=== PATIENT | female | born 1940 | race Caucasian/White ===

== ENCOUNTER → 2016-12-01 | Outpatient (CLI) | payer OTHER, BC | LOC: MMPC 11:11 | PROVIDERS: ATTEND Internal Medicine | DX: E78.5 Hyperlipidemia, unspecified (principal); G47.00 Insomnia, unspecified; M17.12 Unilateral primary osteoarthritis, left knee; I25.10 Atherosclerotic heart disease of native coronary artery without angina pectoris; M81.0 Age-related osteoporosis without current pathological fracture; R20.2 Paresthesia of skin; Z86.711 Personal history of pulmonary embolism; Z90.81 Acquired absence of spleen; Z86.018 Personal history of other benign neoplasm | CPT/HCPCS: 99213; G0463 ==

== ENCOUNTER → 2017-02-24 | Outpatient (CLI) | payer OTHER, BC | LOC: MMPC 09:00 | PROVIDERS: ATTEND Family Medicine | DX: M54.2 Cervicalgia (principal); M79.641 Pain in right hand; M79.642 Pain in left hand | CPT/HCPCS: 99213; G0463 ==

== ENCOUNTER → 2017-04-01 | Outpatient (CLI) | payer OTHER, BC ==
[2017-04-01 08:56] LABS: BLOOD UREA NITROGEN 16 mg/dL (7-22); BUN/CREATININE RATIO 11.42 (6-20); CALCIUM 9.8 mg/dL (8.7-10.7); SERUM ALBUMIN 4.2 g/dL (3.5-4.8)
[2017-04-01 08:57] LABS: BASOPHILS # (AUTO) 0.04 10*3/UL; BASOPHILS % (AUTO) 0.5 % (0-1); EOSINOPHILS # (AUTO) 0 10*3/UL; EOSINOPHILS % (AUTO) 0 % (0-8); HEMATOCRIT 42.5 % (37.0-47.0); HEMOGLOBIN 14.4 g/dL (12.0-16.0); LYMPHOCYTES # (AUTO) 1.12 10*3/uL; MEAN CORPUSCULAR HEMOGLOBIN 30.8 PG (27-31); MEAN CORPUSCULAR HGB CONC 33.9 g/dL (33-37); MEAN PLATELET VOLUME 9.4 FL (7.4-12.2); MONOCYTES # (AUTO) 0.58 10*3/UL (0.3-0.8); NEUTROPHILS # (AUTO) 6.49 10*3/UL; NEUTROPHILS % (AUTO) 78.7 % (50-80); RED BLOOD COUNT 4.67 10^6/uL (4.20-5.40)
[2017-04-01 09:09] LABS: PLATELET MORPHOLOGY COMMENT NORMAL MORPHOLOGY (NORM); RBC MORPHOLOGY COMMENT NORMAL MORPHOLOGY (NORM); WBC MORPHOLOGY COMMENT NORMAL MORPHOLOGY (NORM)
--- NOTE | 2017-04-01 09:10 | DI ---
History: Fever of unknown origin Comparison: Chest x-ray performed on November 25, 2014 Findings: Lungs are fully expanded and clear. No infiltrate or pleural effusion Cardiac silhouette is slightly enlarged. Pulmonary vasculature normal Aortic atherosclerosis Diaphragms are flattened. Impression: Emphysematous configuration of the chest. No acute pulmonary disease. No changes compared with November 25, 2014
== END ==
LOC: RAD 08:16
PROVIDERS: ATTEND Physician Assistant Medical
DX: R50.9 Fever, unspecified (principal); J98.8 Other specified respiratory disorders; I10 Essential (primary) hypertension; E78.5 Hyperlipidemia, unspecified; R06.02 Shortness of breath
CPT/HCPCS: 36415; 71020; 80053; 85025; 85379; 87400; 99213

== ENCOUNTER 2017-04-03 10:52 | Inpatient (IN) | payer OTHER, BC ==
[2017-04-03] MEDS ORDERED: KETOROLAC 15 MG/1 ML VIAL IVP ONE (11:13)
[2017-04-03] MEDS ORDERED: Sodium Chloride 0.9% 1,000 ML PRIMARY IV ONE (11:13)
[2017-04-03] MEDS ORDERED: NORMAL SALINE 10 ML SYRINGE FLUSH IVP PRN (11:13)
[2017-04-03] MEDS ORDERED: ACETAMINOPHEN 325 MG TABLET PO ONE (11:13)
[2017-04-03 11:24] LABS: BILIRUBIN,URINE NEGATIVE (NEG); CLARITY,URINE CLEAR (CLEAR); COLOR,URINE YELLOW; GLUCOSE, URINE (UA) NEGATIVE (NEG); NITRATE,URINE NEGATIVE (NEG); OCCULT BLOOD,URINE Trace-lysed (NEG); PH,URINE 5.5 (5.0-8.5); PROTEIN,URINE 30 mg/dl (NEG); UROBILINOGEN,URINE 0.2 EU/dL (0.2)
[2017-04-03 11:32] LABS: RBC,URINE 0-2 /hpf; URINE SAMPLE TYPE CLEAN CATCH URINE
[2017-04-03 11:33] LABS: BACTERIA,URINE FEW; SQUAMOUS EPITHELIAL CELL,UR MODERATE; WBC,URINE 0-3
[2017-04-03 11:50] LABS: MAGNESIUM 2.2 mg/dL (1.6-2.4)
[2017-04-03 12:09] LABS: C-REACTIVE PROTEIN 15.7 mg/dL (0.0-0.9)
--- NOTE | 2017-04-03 12:45 | DI ---
CT ANGIOGRAM OF THE CHEST, 04/03/2017 10:15 AM : Clinical History: Elevated d-dimer tests. Cough. Fever. Previous Exam: 11/30/2014. Scans are performed from the base of the neck to the lower lung bases following IV administration of 65 mL of Isovue 300. Proprietary automated bolus tracking software was not used to verify the timing of the injection. The base of the neck and thoracic inlet are normal. There are no abnormal axillary, supraclavicular, mediastinal, or hilar nodes. The heart is normal. Small punctate calcifications are present in the pr oximal third of the LAD. There is a small pericardial effusion and this is actually smaller than on t he previous study. The pulmonary arteries are normal. There is no pulmonary arterial hypertension. Th ere is no evidence of pulmonary embolism or pulmonary infarction. The lungs are clear and there are n o pulmonary nodules or masses. Both adrenal glands, the spleen, and the visualized portions of the li tierney and pancreas are normal. READIN. Normal CTA of the chest. There are no pulmonary emboli or pulmonary infarcts. No pneumonia is not ed. 2. Small faint calcifications are noted in the proximal third of the LAD indicating coronary artery disease. There is also a small pericardial effusion anteriorly] compared to the previous exam, the si ze of the pericardial effusion is actually smaller.
[2017-04-03] MEDS ORDERED: cefTRIAXone Inj 2 GM in Sodium Chloride 0.9% 100 ML IV ONE (13:13)
--- NOTE | 2017-04-03 13:31 | PDOC ---
History and Physical - History of Present Illness History of Present Illness: This very nice 76-year-old female with past medical history significant for PE on anticoagulation. The patient states that she felt the having chills last Wednesday with a fever went to the urgent care they ran some blood work and a chest x-ray. She was put on Omnicef and sent home over the next few days the she thought she was getting better but then she has not had any fluids and low appetite and this morning her fever returned she says. She does have occasional cough in the ER she was evaluated CT scan PE protocol showed no PE no pneumonia and was admitted for dehydration and bronchitis and fever of unknown origin she does have elevated CRP and lactic acid. She is also little hypotensive but now has improved after 1 L of fluid denies dysuria hematuria diarrhea had some occasional nausea no abdominal pain no chest pain or shortness of breath Past Medical History Medical History: 1. Hypertension. 2. Hypercholesterolemia. 3. 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 4. 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 Surgical History: 1. Splenectomy after an accident. 2. Acoustic neuroma surgery about 5 years ago. Pertinent Family History: History of coronary artery disease in her father. Tobacco Use: Never Smoker Substance Use Type: None Medication / Allergies Home Medications: Home Medications Medication Instructions Recorded Confirmed Type Multivitamin [Multivitamins] 1 each PO DAILY 06/10/12 04/03/17 History Docusate Sodium [Stool Softener] 100 mg PO DAILY cap 10/23/15 04/03/17 History Ibuprofen/Diphenhydramine [Advil 1 tab PO PRN tab 10/23/15 04/03/17 History Pm Caplet] Estradiol Vaginal Cream 0.01% 1 applic VAGINAL 2XW #1 tube 02/24/16 04/03/17 Clinic [Estrace Vaginal Cream 0.01%] Folic Acid 1 tab PO QID #120 tab 03/02/16 04/03/17 Clinic Spironolactone 1 tab PO DAILY #90 tab 04/27/16 04/03/17 Clinic Pravastatin Sodium [Pravachol] 1 tab-cap PO DAILY #90 11/19/16 04/03/17 Clinic Zolpidem Tartrate 0.5 - 1 tab-cap PO QHS PRN #30 12/01/16 04/03/17 Clinic tab-cap Potassium Chloride [Klor-Con 10] 1 tab-cap PO QD #90 tab 01/26/17 04/03/17 [facility] Oxycodone HCl/Acetaminophen 1 each PO BID PRN #30 tab 02/24/17 04/03/17 Clinic [Percocet 5-325 Mg Tablet] Rivaroxaban [Xarelto] 1 tab-cap PO DAILY #90 tab 02/26/17 04/03/17 [facility] Cefdinir 300 mg PO Q12H #20 cap 04/01/17 04/03/17 [facility] Allergies/Adverse Reactions: Allergies Allergy/AdvReac Type Severity Reaction Status Date / Time atorvastatin calcium Allergy Intermediate HIGH Verified 04/03/17 11:06 [From Lipitor] ANXIETY pseudoephedrine HCl Allergy Intermediate TACHYCARDIA Verified 04/03/17 11:06 [From Sudafed] vancomycin AdvReac Severe ITCHING Verified 04/03/17 11:06 alendronate sodium AdvReac Intermediate muscle Verified 04/03/17 11:06 [From Fosamax] joint and pain Review of Systems - Review of Systems All Systems: Reviewed & No Additional Complaints Except as Stated - Respiratory Respiratory: REPORTS: Cough. DENIES: Sputum, Dyspnea At Rest, Dyspnea with Exertion, Hemoptysis, Wheezing - Cardiovascular Cardiovascular: DENIES: Negative System Review, Chest Pain, Edema, Syncope, Palpitations, Orthopnea, Paroxysmal Nocturnal Dyspnea, Other, See HPI - Gastrointestinal Gastrointestinal / Abdominal: REPORTS: Nausea, Poor Appetite. DENIES: Vomiting , Diarrhea, Abdominal Pain, Bloody Stool, Heartburn, Regurgitation, Bloating, Lactose Intolerance, Melena, Bright Red Blood Per Rectum - Genitourinary Genitourinary: DENIES: Negative System Review, Pain, Burning, Hematuria, Incontinence, Urgency, Hesitant Stream, Decreased Stream, Nocutria, Discharge, Sexual Dyfunction, Other, See HPI - Musculoskeletal Musculoskeletal: DENIES: Negative System Review, Back Pain, Neck Pain, Swelling , Calf Pain, Muscle Pain, Cramping, Joint Pain - Hands, Joint Pain - Elbows, Joint Pain - Shoulders, Joint Pain - Hips, Joint Pain - Knees, Joint Pain - Feet , AM Stiffness, Other, See HPI - Neurological Neurologic: REPORTS: Headache. DENIES: Numbness/Paresthesia, Tremors, Seizures , Memory Loss, Difficulty Walking, Incoordination Exam - Vitals Vital Signs: Vital Signs Temperature 102.1 F Temperature Source Oral Pulse Rate [Pulse Oximeter] 89 Respiratory Rate 19 Blood Pressure [Left Arm] 131/100 Pulse Ox 91 Oxygen Delivery Method Room Air Height 5 ft 4 in Weight 63.957 kg - General General Appearance: POSITIVE: No Acute Distress, Cooperative - Head Head Exam: POSITIVE: Normal Inspection, Normocephalic, Atraumatic - Neck Neck Exam: POSITIVE: Normal Inspection, Full ROM - Respiratory Respiratory Exam: POSITIVE: Clear to Auscultation - Bilaterally, Breathing Non Labored - Cardiovascular Cardiovascular Exam: POSITIVE: RRR, No Murmur, No Clicks, No Gallops - Extremities Extremities Exam: POSITIVE: No Clubbing Present, No Edema Present, No Cyanosis Present Results - Labs Labs - Last 24 Hours: Laboratory Results 04/03/17 04/03/17 Range/Units 11:13 11:30 Lactic Acid 2.7 H (0.70-2.10) MMOL/L Magnesium 2.2 (1.6-2.4) mg/dL Total Creatine Kinase 114 (30-136) IU/L C-Reactive Protein 15.7 H (0.0-0.9) mg/dL Ur Collection Type Clean catch urine Urine Color Yellow Urine Clarity Clear (CLEAR) Urine pH 5.5 (5.0-8.5) Ur Specific [place] 1.015 (1.005-1.030) Urine Protein 30 (NEG) mg/dl Urine Glucose (UA) Negative (NEG) mg/dL Urine Ketones Negative (NEG) Urine Occult Blood Trace-lysed H (NEG) Urine Nitrate Negative (NEG) Urine Bilirubin Negative (NEG) Urine Urobilinogen 0.2 (0.2) EU/dL Ur Leukocyte Esterase Negative (NEG) Urine RBC 0-2 (NONE) /hpf Urine WBC 0-3 (NONE) Ur Squamous Epith Cells Moderate (NONE) Ur Renal Epithelial Cell None (NONE) Urine Crystals None Urine Bacteria Few (NONE) Urine Casts None (NONE) Urine Mucus Moderate (NONE) Urine Trichomonas None (NONE) Urine Yeast None (NONE) Ur Culture Indicated? Culture not set Assessment and Plan - Patient Problems (1) DVT prophylaxis Current Visit: No Status: Acute Comment: Continue xarelto (2) Bronchitis Current Visit: Yes Status: Acute (3) Dehydration Current Visit: Yes Status: Acute Comment: Continue normal saline at 125 an hour (4) Fever and chills Current Visit: Yes Status: Acute - Assessment / Plan Additional Assessment/Plan Details: This very nice 76-year-old female could be early pneumonia has treated with the Omnicef not showing up on CT I don't find any source of infection at present time she has no abdominal pain nausea no diarrhea I will add a troponin could also be viral blood pressure is improved I believe from her not drinking any fluids over the last few days we will continue Rocephin and Zithromax which she got in the ER already blood cultures were drawn and continue IV fluids. She does have a history of acoustic neuroma in the past I will order CT scan of the head as well no contrast
--- NOTE | 2017-04-03 13:34 | PDOC ---
General Adult HPI - General Chief Complaint: General Medical Stated Complaint: FEVER / CHILLS Date Seen by Provider: 04/03/17 Time Seen by Provider: 10:55 Source: POSITIVE: Patient Exam Limitations: POSITIVE: No limitations Nurse's Notes Reviewed & Considered: Yes - History of Present Illness Initial Comment: The patient is a 76-year-old female who is sent to the emergency department by urgent care with complaints of fever, cough and general malaise. She states that she started feeling ill on Wednesday of last week. She was evaluated at the walk-in clinic on . She had a chest x-ray that was read by the radiologist as normal however there was some concern about possible early pneumonia and she was placed on Omnicef. She has been taking this antibiotic for the past couple of days. She continues however to run a fever and had a temperature of 102 on arrival here. She also has associated chills and general malaise. She states that she has had no appetite. She does have some cough. She denies sore throat or nasal congestion. She has had a general headache as well the past 24 hours. She denies any abdominal pain, urinary complaints or rash. She does have a history of blood clots as well and currently takes Xarelto. She was seen at the walk-in clinic again this morning. Blood work was done and revealed an elevated d-dimer. Her white blood cell count was normal. She was sent here to the emergency room for further workup and possible hospital admission. Have you received a tetanus shot in the past 10 years?: Yes - Patient Home Medications Home Medications: Home Medications Multivitamin [Multivitamins] 1 each PO DAILY 06/10/12 Docusate Sodium [Stool Softener] 100 mg PO DAILY cap 10/23/15 Ibuprofen/Diphenhydramine [Advil Pm Caplet] 1 tab PO PRN tab 10/23/15 Estradiol Vaginal Cream 0.01% [Estrace Vaginal Cream 0.01%] 1 applic VAGINAL 2XW #1 tube 02/24/16 Folic Acid 1 tab PO QID #120 tab 03/02/16 Spironolactone 1 tab PO DAILY #90 tab 04/27/16 Pravastatin Sodium [Pravachol] 1 tab-cap PO DAILY #90 11/19/16 Zolpidem Tartrate 0.5 - 1 tab-cap PO QHS PRN #30 tab-cap 04/18/17 Potassium Chloride [Klor-Con 10] 1 tab-cap PO QD #90 tab 01/26/17 Oxycodone HCl/Acetaminophen [Percocet 5-325 Mg Tablet] 1 each PO BID PRN #30 tab 02/24/17 Rivaroxaban [Xarelto] 1 tab-cap PO DAILY #90 tab 02/26/17 Cefdinir 300 mg PO Q12H #20 cap 04/01/17 - Patient Allergies Allergies/Adverse Reactions: Allergies Allergy/AdvReac Type Severity Reaction Status Date / Time atorvastatin calcium Allergy Intermediate HIGH Verified 04/03/17 11:06 [From Lipitor] ANXIETY pseudoephedrine HCl Allergy Intermediate TACHYCARDIA Verified 04/03/17 11:06 [From Sudafed] vancomycin AdvReac Severe ITCHING Verified 04/03/17 11:06 alendronate sodium AdvReac Intermediate muscle Verified 04/03/17 11:06 [From Fosamax] joint and pain Past Medical History - heen HEENT History: Cataracts, Other (please comment) Additional HEENT History: WEARS GLASSES Cardiovascular History: Hyperlipidemia Respiratory History: Pulmonary Embolism Gastrointestinal History: Denies History Genitourinary History: Denies History Endocrine History: Denies History Musculoskeletal History: Arthritis, Osteoporosis Prosthesis or Implant: Yes (TITANIUM MESH/BRAIN, RIGHT KNEE REPLACEMENT HARDWARE ) Additional Musculoskeletal History: Ankle pain Neurological History: Denies History Blood Disorders: Denies History Psychiatric History: Anxiety Disorders History of Sexually Transmitted Diseases: No Female Reproductive History: Hysterectomy Cancer History: Denies History In Past Year Been Physically Harmed or Verbally Threatened: No (PER PATIENT) History of MDRO: Unknown Type of MDRO: MRSA Other Type of MDRO: POSSIBLE HISTORY OF MRSA History of Other Communicable Diseases: No Tobacco Use: Never Smoker Alcohol Use: None Substance Use Type: None Previous Surgical History: Yes Type / Date of Surgery: PARTIAL HYST/ T&A/ BRAIN TUMOR/ ACOUSTIC NEUROMA REMOVED 2008/ CYSTOCELE AND RECTOCELE/ 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/ EXP LAP, TONSILLECTOMY, LEFT OOPHERECTOMY, BILATERAL CATARACT REMOVAL, RIGHT TOTAL KNEE REPLACEMENT Anesthesia Reactions: No Malignant Hyperthermia: No Family History of Malignant Hyperthermia: No Significant Family History: Heart disease Past Medical History Reviewed: Reviewed - No Changes ROS - Limitations ROS Limitations: No Limitations Constitution: REPORTS: Chills, Fever, Weakness (Generalized weakness and malaise ) Cardiovascular: DENIES: Chest Pain Respiratory: REPORTS: Cough Non Productive. DENIES: Hurts To Breathe (She does have increased coughing when she tries take a deep breath), Shortness Of Breath Neurological: REPORTS: Headache. DENIES: Numbness, Weakness Gastrointestinal: REPORTS: Nausea. DENIES: Abdominal Pain, Vomitting Musculoskeletal: REPORTS: Muscle Aches. DENIES: Lower Extremity Swelling Genitourinary: DENIES: Dysuria, Difficulty Urinating Eyes: REPORTS: Denies Symptoms ENT: DENIES: Congestion, Sore Throat Skin: DENIES: Rash General Adult Exam - General Appearance General Appearance: POSITIVE: Alert, Cooperative, No Acute Distress (She does appear ill however on arrival) - HEENT HEENT: POSITIVE: Head Inspection Nml, Eyes Inspection Nml, Ears Inspection Nml, Nose Inspection Nml, Pharynx Inspect. Nml, Dry Mucous Membranes - Neck Neck: POSITIVE: Normal Inspection, Lymphadenopathy - Respiratory Respiratory: POSITIVE: No Respiratory Distress, Breath Sounds Normal - Cardiovascular Cardiovascular: POSITIVE: Regular Rate & Rhythm, No Murmur - Abdomen Abdomen: Soft: (All Quadrants), Denies Tenderness: (All Quadrants), No Distention: (All Quadrants) General Adult Progress - Results Reviewed by me Xrays/CTs/US Reviewed by me: Yes Discussed with Radiologist: Yes Radiology Findings: CTA of the chest reveals no PE or obvious pneumonia, no acute findings per radiologist. Lab Results Reviewed: Yes Lab Results:: Laboratory Results 04/03/17 04/03/17 Range/Units 11:13 11:30 Lactic Acid 2.7 H (0.70-2.10) MMOL/L Magnesium 2.2 (1.6-2.4) mg/dL Total Creatine Kinase 114 (30-136) IU/L C-Reactive Protein 15.7 H (0.0-0.9) mg/dL Ur Collection Type Clean catch urine Urine Color Yellow Urine Clarity Clear (CLEAR) Urine pH 5.5 (5.0-8.5) Ur Specific [place] 1.015 (1.005-1.030) Urine Protein 30 (NEG) mg/dl Urine Glucose (UA) Negative (NEG) mg/dL Urine Ketones Negative (NEG) Urine Occult Blood Trace-lysed H (NEG) Urine Nitrate Negative (NEG) Urine Bilirubin Negative (NEG) Urine Urobilinogen 0.2 (0.2) EU/dL Ur Leukocyte Esterase Negative (NEG) Urine RBC 0-2 (NONE) /hpf Urine WBC 0-3 (NONE) Ur Squamous Epith Cells Moderate (NONE) Ur Renal Epithelial Cell None (NONE) Urine Crystals None Urine Bacteria Few (NONE) Urine Casts None (NONE) Urine Mucus Moderate (NONE) Urine Trichomonas None (NONE) Urine Yeast None (NONE) Ur Culture Indicated? Culture not set - Patient's Progress MDM / ED Course: On arrival the patient was febrile with temperature of 102. Blood cultures and lactate were obtained. Her lactate was mildly elevated at 2.7. CRP is elevated at 15 with a normal white count. Her d-dimer was elevated this morning and she does have a history of PE in the past. She was given a 1 L bolus of normal saline as she appears to be clinically dehydrated. Initial blood pressure was normal. She also received Tylenol 650 mg by mouth and Toradol 15 mg IV. Her temperature came down to 99 and her headache improved. After CT her blood pressure did drop into the 70s after which she completed her fluid bolus. Her blood pressure came up into the mid-80s. She states that her blood pressure is normally not very high. CT does not show any obvious PE or pneumonia. Her urinalysis is also normal. Exact cause of her current fever is unclear however may represent bronchitis. Decision was made to admit the patient for further treatment and evaluation. Dr. Gimenez has agreed to admit the patient. The patient is in agreement with this plan. Patient Care Time - Estimated PCT Patient Care Time (In Minutes): 35 Vital Signs - Recent Vital Signs Vital Signs: Vital Signs (Last 8 hours) Temp Pulse Resp BP Pulse Ox 04/03/17 11:29 102.1 F H 04/03/17 10:52 102.1 F H 89 19 131/100 91 - VS Reviewed Vital Signs Reviewed: Yes Discharge Clinical Impression: Fever, Bronchitis Discharge Disposition: Admit to Observation Condition: Fair
[2017-04-03] MEDS: Sodium Chloride 0.9% 1,000 ML PRIMARY IV SCH ×2 (13:52→21:41)
[2017-04-03] MEDS ORDERED: IPRATROPIUM/ALBUTEROL SULFATE 3 ML NEB NEB PRN (14:49)
[2017-04-03] MEDS ORDERED: ONDANSETRON 4 MG/2 ML VIAL IVP PRN (14:49)
[2017-04-03] MEDS ORDERED: LIDOCAINE W/ SODIUM BICARB 0.5 ML SYR SUBD PRN (14:49)
[2017-04-03] MEDS ORDERED: cefTRIAXone Inj 2 GM in Sodium Chloride 0.9% 100 ML IV SCH (15:00)
[2017-04-03] MEDS: Pravastatin Tab 40 MG TAB PO SCH (20:34)
[2017-04-03] MEDS: oxyCODONE-ACETAMINOPHEN 5-325 TAB PO PRN (21:37)
[2017-04-04] MEDS: oxyCODONE-ACETAMINOPHEN 5-325 TAB PO PRN (05:09)
[2017-04-04 05:20] LABS: BASOPHILS # (AUTO) 0.07 10*3/UL; BASOPHILS % (AUTO) 1.2 % (0-1); EOSINOPHILS # (AUTO) 0 10*3/UL; EOSINOPHILS % (AUTO) 0 % (0-8); HEMOGLOBIN 12.1 g/dL (12.0-16.0); LYMPHOCYTES # (AUTO) 1.54 10*3/uL; MEAN CORPUSCULAR HEMOGLOBIN 31.3 PG (27-31); MEAN CORPUSCULAR HGB CONC 34.6 g/dL (33-37); MEAN CORPUSCULAR VOLUME 90.7 FL (81-99); MONOCYTES # (AUTO) 0.51 10*3/UL (0.3-0.8); NEUTROPHILS # (AUTO) 3.51 10*3/UL; NEUTROPHILS % (AUTO) 62.1 % (50-80); RED BLOOD COUNT 3.86 10^6/uL (4.20-5.40)
[2017-04-04 05:22] LABS: PLATELET MORPHOLOGY COMMENT NORMAL MORPHOLOGY (NORM); RBC MORPHOLOGY COMMENT NORMAL MORPHOLOGY (NORM); WBC MORPHOLOGY COMMENT NORMAL MORPHOLOGY (NORM)
[2017-04-04 05:28] LABS: BUN/CREATININE RATIO 16.36 (6-20); CALCIUM 8.3 mg/dL (8.7-10.7); SERUM ALBUMIN 3.1 g/dL (3.5-4.8)
[2017-04-04 07:41] LABS: SERUM ALBUMIN 3.1 g/dL (3.5-4.8)
--- NOTE | 2017-04-04 08:32 | DI ---
HISTORY: Headache. Patient has a history of acoustical neuroma, diagnosed eight years ago, resolved for five years. COMPARISON: None available. TECHNIQUE: Contiguous axial images of the brain prior to and following contrast administration were obtained and submitted for interpretation. FINDINGS: There is mild periventricular and subcortical white matter lucency. There is mild atrophy. The brain parenchyma is otherwise unremarkable in appearance and without definite focal attenuation a bnormality. Cerebral sulci have a normal appearance. Posterior fossa structures are unremarkable. The ventricles appear normal. There is no evidence of mass effect, large vessel infarction or hemorr kwabena, or extra-axial collection. The paranasal sinuses and mastoids air cells appear clear. Visualized orbits are normal. No osseous lesions seen. There is no displaced skull fracture demonstrated in the axial plane. CTA images of the brain demonstrate no focal areas of stenosis or large aneurysm in the [place]. IMPRESSION: 1. 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 Mild atrophy. 2. CTA images of the brain demonstrate no focal areas of stenosis or large aneurysm in the [place]. 3. Otherwise, unremarkable CT examination of the head.
[2017-04-04] MEDS ORDERED: Spironolactone Tab 50 MG TAB PO SCH (09:00)
[2017-04-04] MEDS ORDERED: Rivaroxaban Tab 10 MG TAB PO SCH ×2 (09:00)
--- NOTE | 2017-04-04 09:15 | PDOC(PROG) ---
Date and Time of Service: 04/04/2017 9:10 AM Interval History: Subjective Patient came into the hospital with history of fever that has been going on for 3-4 days, she also had chills. She denied abdominal pain, no nausea no vomiting. Appetite were decreased. She went to the urgent care clinic on and she was started on antibiotic after taking a chest X ray and blood test. She's been taking her antibiotics however she was still not feeling well contineu to have the fevers so she came in to the ER temperature was [address] of the chest was negative for infection she was treated empirically and admitted. She feels somewhat better but she said she is groggy just because she took the Percocet. No significant cough. No diarrhea. No abdominal pain. Objective : Data - Labs CBC and BMP: 04/04/17 04:15 04/04/17 04:15 Labs - Last 24 Hours: Laboratory Results 04/04/17 04/04/17 Range/Units 04:15 08:35 WBC 5.65 (4.8-10.8) 10^3/uL RBC 3.86 L (4.20-5.40) 10^6/uL Hgb 12.1 (12.0-16.0) g/dL Hct 35.0 L (37.0-47.0) % MCV 90.7 (81-99) FL MCH 31.3 H (27-31) PG MCHC 34.6 (33-37) g/dL RDW Std Deviation 46.1 (39-50) fL RDW Coeff of [place]ober[place] 14.4 (11.5-14.5) % Plt Count 243 (140-350) 10*3/uL MPV 10.0 (7.4-12.2) FL Immature Gran % (Auto) 0.4 (0-5) % Neut % (Auto) 62.1 (50-80) % Lymph % (Auto) 27.3 (10-50) % [place] % (Auto) 9.0 (5-15) % Eos % (Auto) 0 (0-8) % Baso % (Auto) 1.2 H (0-1) % Immature Gran # (Auto) 0.02 10*3/UL Neut # (Auto) 3.51 10*3/UL Lymph # (Auto) 1.54 10*3/uL [place] # (Auto) 0.51 (0.3-0.8) 10*3/UL Eos # (Auto) 0 10*3/UL Baso # (Auto) 0.07 10*3/UL WBC Morphology Comment Normal morphology (NORM) Plt Morphology Comment Normal morphology (NORM) RBC Morph Comment Normal morphology (NORM) Sodium 129 L (135-145) meq/L Potassium 4.5 (3.8-5.2) meq/L Chloride 101 (98-112) meq/L Carbon Dioxide 20 L (23-33) meq/L Anion Gap 8 (5-20) BUN 18 (7-22) mg/dL Creatinine 1.1 (0.50-1.20) mg/dL Estimated GFR (>60 ml/min/1.73m(2)) BUN/Creatinine Ratio 16.36 (6-20) Glucose 84 (78-110) mg/dL Calculated Osmolality 268.0 (267-292) mOsm/kg Lactic Acid 1.2 (0.70-2.10) MMOL/L Calcium 8.3 L (8.7-10.7) mg/dL Phosphorus 2.9 (2.4-4.3) mg/dl Total Bilirubin 0.2 L D (0.3-1.2) mg/dL Conjugated Bilirubin 0.00 (0.0-0.3) MG/DL Unconjugated Bilirubin 0 (0.0-1.1) mg/dL AST 63 H (8-39) IU/L ALT 69 H (9-52) IU/L Alkaline Phosphatase 55 (38-126) IU/L Total Protein 5.8 L (6.1-8.0) g/dL Albumin 3.1 L (3.5-4.8) g/dL Objective : Exam - General General Appearance: No Acute Distress, Cooperative - Head Head Exam: Normal Inspection - Eye Eye Exam: Normal Appearance - ENT ENT Exam: Normal Exam - Neck Neck Exam: Normal Inspection - Respiratory Respiratory Exam: Clear to Auscultation - Bilaterally - Cardiovascular Cardiovascular Exam: RRR - GI/Abdominal GI/Abdominal Exam: Normal Bowel Sounds, Non Tender, Non Distended, Soft - Rectal Rectal Exam: Deferred - External Exam: Deferred - Extremities Extremities Exam: Normal Inspection - Back Back Exam: Normal Inspection - Neurological Neurological Exam: Alert, Oriented x 3, CN II-XII Intact - Psychiatric Psychiatric Exam: Normal Affect - Integumentary Integumentary Exam: Normal Color Assessment and Plan - Patient Problems (1) Fever Current Visit: Yes Status: Acute Comment: Etiology is unclear, I think we'll continue IV antibiotics until we have culture result. LFT were slightly abnormal we'll continue watching this will order ultrasound of the liver she still have her gallbladder. To me on the CT there may be a stone in the gallbladder. No tenderness though On abdominal examination. (2) DVT prophylaxis Current Visit: No Status: Acute Comment: She is on Xarelto for previous a history of chronic PE
[2017-04-04] MEDS: Sodium Chloride 0.9% 1,000 ML IV SCH ×2 (11:31→19:52)
[2017-04-04] MEDS: IBUPROFEN 400 MG TABLET PO PRN (14:58)
[2017-04-04] MEDS ORDERED: Ertapenem Inj 1 GM in Sodium Chloride 0.9% 100 ML IV SCH (15:00)
--- NOTE | 2017-04-04 19:11 | DI ---
CLINICAL HISTORY: Abnormal liver function tests. PREVIOUS EXAM: None available. TECHNIQUE: Multiple helically acquired CT images are obtained through the abdomen and pelvis without contrast. FINDINGS: There is some residual contrast within the urinary bladder. There is also a stone within t he gallbladder neck. The liver appears grossly normal. The spleen, adrenals and pancreas are unremarkable. There is some p erinephric fat stranding which appears to be age related and symmetric bilaterally. There is a trace amount of free fluid within the deep pelvis. There is no evidence of acute appendici tis. Mild degenerative changes of the spine are seen. Small bilateral pleural effusions are seen with some adjacent subsegmental atelectasis. IMPRESSION: 1. Stone within the gallbladder neck is worrisome for a lodged gallstone. NOTIFICATION: The above findings were phoned to Millie Brown in the ER Department on 04/04/2017 at 9: 30pm EST.
[2017-04-04] MEDS ORDERED: Sodium Chloride 0.9% 250 ML IV ONE (19:45)
[2017-04-04] MEDS: Pravastatin Tab 40 MG TAB PO SCH (20:57)
[2017-04-04 21:13] LABS: LIPASE 237 IU/L (23-300)
[2017-04-05 04:43] LABS: BASOPHILS # (AUTO) 0.05 10*3/UL; BASOPHILS % (AUTO) 0.5 % (0-1); EOSINOPHILS # (AUTO) 0 10*3/UL; EOSINOPHILS % (AUTO) 0 % (0-8); HEMOGLOBIN 11.4 g/dL (12.0-16.0); LYMPHOCYTES # (AUTO) 1.19 10*3/uL; MEAN CORPUSCULAR HGB CONC 35.6 g/dL (33-37); MEAN CORPUSCULAR VOLUME 89.9 FL (81-99); MEAN PLATELET VOLUME 9.1 FL (7.4-12.2); MONOCYTES # (AUTO) 0.47 10*3/UL (0.3-0.8); MONOCYTES % (AUTO) 4.5 % (5-15); NEUTROPHILS # (AUTO) 8.66 10*3/UL; NEUTROPHILS % (AUTO) 82.9 % (50-80); RED BLOOD COUNT 3.56 10^6/uL (4.20-5.40)
[2017-04-05 04:53] LABS: LIPASE 186 IU/L (23-300)
[2017-04-05 04:54] LABS: BUN/CREATININE RATIO 12.72 (6-20); CALCIUM 7.9 mg/dL (8.7-10.7); SERUM ALBUMIN 2.6 g/dL (3.5-4.8)
[2017-04-05 05:06] LABS: PLATELET MORPHOLOGY COMMENT NORMAL MORPHOLOGY (NORM); RBC MORPHOLOGY COMMENT NORMAL MORPHOLOGY (NORM); WBC MORPHOLOGY COMMENT NORMAL MORPHOLOGY (NORM)
--- NOTE | 2017-04-05 07:48 | PDOC(PROG) ---
Date and Time of Service: 04/05/2017 7:45 AM Interval History: Subjective Maybe a little bit better, no chills. She did have fever in the afternoon yesterday. No cough, no shortness of breath. No abdominal pain. Objective : Data - Labs CBC and BMP: 04/05/17 04:30 04/05/17 04:30 Labs - Last 24 Hours: Laboratory Results 04/04/17 04/04/17 04/04/17 Range/Units 04:15 08:35 21:02 WBC (4.8-10.8) 10^3/uL RBC (4.20-5.40) 10^6/uL Hgb (12.0-16.0) g/dL Hct (37.0-47.0) % MCV (81-99) FL MCH (27-31) PG MCHC (33-37) g/dL RDW Std Deviation (39-50) fL RDW Coeff of Rigoberto (11.5-14.5) % Plt Count (140-350) 10*3/uL MPV (7.4-12.2) FL Immature Gran % (Auto) (0-5) % Neut % (Auto) (50-80) % Lymph % (Auto) (10-50) % Clayton % (Auto) (5-15) % Eos % (Auto) (0-8) % Baso % (Auto) (0-1) % Immature Gran # (Auto) 10*3/UL Neut # (Auto) 10*3/UL Lymph # (Auto) 10*3/uL Clayton # (Auto) (0.3-0.8) 10*3/UL Eos # (Auto) 10*3/UL Baso # (Auto) 10*3/UL WBC Morphology Comment (NORM) Plt Morphology Comment (NORM) RBC Morph Comment (NORM) Sodium (135-145) meq/L Potassium (3.8-5.2) meq/L Chloride (98-112) meq/L Carbon Dioxide (23-33) meq/L Anion Gap (5-20) BUN (7-22) mg/dL Creatinine (0.50-1.20) mg/dL Estimated GFR (>60 ml/min/1.73m(2)) BUN/Creatinine Ratio (6-20) Glucose (78-110) mg/dL Calculated Osmolality (267-292) mOsm/kg Lactic Acid 1.2 (0.70-2.10) MMOL/L Calcium (8.7-10.7) mg/dL Total Bilirubin 0.2 L D (0.3-1.2) mg/dL Conjugated Bilirubin 0.00 (0.0-0.3) MG/DL Unconjugated Bilirubin 0 (0.0-1.1) mg/dL AST 63 H (8-39) IU/L ALT 69 H (9-52) IU/L Alkaline Phosphatase 55 (38-126) IU/L C-Reactive Protein (0.0-0.9) mg/dL Total Protein 5.8 L (6.1-8.0) g/dL Albumin 3.1 L (3.5-4.8) g/dL Globulin (2.50-4.10) g/dL Albumin/Globulin Ratio (1.3-2.0) mg/g Amylase 62 (30-110) U/L Lipase 237 (23-300) IU/L 04/05/17 Range/Units 04:30 WBC 10.44 (4.8-10.8) 10^3/uL RBC 3.56 L (4.20-5.40) 10^6/uL Hgb 11.4 L (12.0-16.0) g/dL Hct 32.0 L (37.0-47.0) % MCV 89.9 (81-99) FL MCH 32.0 H (27-31) PG MCHC 35.6 (33-37) g/dL RDW Std Deviation 47.4 (39-50) fL RDW Coeff of Rigoberto 14.9 H (11.5-14.5) % Plt Count 246 (140-350) 10*3/uL MPV 9.1 (7.4-12.2) FL Immature Gran % (Auto) 0.7 (0-5) % Neut % (Auto) 82.9 H (50-80) % Lymph % (Auto) 11.4 (10-50) % Clayton % (Auto) 4.5 L (5-15) % Eos % (Auto) 0 (0-8) % Baso % (Auto) 0.5 (0-1) % Immature Gran # (Auto) 0.07 10*3/UL Neut # (Auto) 8.66 10*3/UL Lymph # (Auto) 1.19 10*3/uL Clayton # (Auto) 0.47 (0.3-0.8) 10*3/UL Eos # (Auto) 0 10*3/UL Baso # (Auto) 0.05 10*3/UL WBC Morphology Comment Normal morphology (NORM) Plt Morphology Comment Normal morphology (NORM) RBC Morph Comment Normal morphology (NORM) Sodium 129 L (135-145) meq/L Potassium 4.2 (3.8-5.2) meq/L Chloride 103 (98-112) meq/L Carbon Dioxide 18 L (23-33) meq/L Anion Gap 8 (5-20) BUN 14 (7-22) mg/dL Creatinine 1.1 (0.50-1.20) mg/dL Estimated GFR (>60 ml/min/1.73m(2)) BUN/Creatinine Ratio 12.72 (6-20) Glucose 83 (78-110) mg/dL Calculated Osmolality 267.0 (267-292) mOsm/kg Lactic Acid (0.70-2.10) MMOL/L Calcium 7.9 L (8.7-10.7) mg/dL Total Bilirubin 0.3 (0.3-1.2) mg/dL Conjugated Bilirubin (0.0-0.3) MG/DL Unconjugated Bilirubin (0.0-1.1) mg/dL AST 69 H (8-39) IU/L ALT 70 H (9-52) IU/L Alkaline Phosphatase 64 (38-126) IU/L C-Reactive Protein 15.7 H (0.0-0.9) mg/dL Total Protein 5.2 L (6.1-8.0) g/dL Albumin 2.6 L (3.5-4.8) g/dL Globulin 2.6 (2.50-4.10) g/dL Albumin/Globulin Ratio 1.00 L (1.3-2.0) mg/g Amylase 51 (30-110) U/L Lipase 186 (23-300) IU/L Objective : Exam - General General Appearance: No Acute Distress, Cooperative - Head Head Exam: Normal Inspection, Atraumatic - Eye Eye Exam: Normal Appearance - ENT ENT Exam: Normal Exam - Neck Neck Exam: Normal Inspection - Respiratory Additional Respiratory Exam Details: Few inspiratory crackles heard at the bases - Cardiovascular Cardiovascular Exam: RRR - GI/Abdominal GI/Abdominal Exam: Normal Bowel Sounds, Non Tender, Non Distended, Soft - Rectal Rectal Exam: Deferred - External Exam: Deferred - Extremities Extremities Exam: Normal Inspection - Back Back Exam: Normal Inspection - Neurological Neurological Exam: Alert, Oriented x 3, CN II-XII Intact, Moves All Extremities Equally - Psychiatric Psychiatric Exam: Normal Affect - Integumentary Integumentary Exam: Normal Color Assessment and Plan - Patient Problems (1) Fever Current Visit: Yes Status: Acute Comment: Etiology unclear, however with abnormal LFTs and the presence of lodged stone in the gallbladder I think we need to look at this as potentially possible reason for her presentation, the unusual thing is the lack of abdominal pain and no tenderness on physical exam. She will have an ultrasound of her gallbladder today and I did speak with Dr. Barnhart the surgeon who will see her today. We've held her Xarelto in case needs to have surgery. (2) DVT prophylaxis Current Visit: No Status: Acute Comment: We'll hold off on Xarelto today. (3) Pleural effusion Current Visit: No Status: Acute Comment: There is a very small pleural effusions, I think we'll cut back on the fluid will aim to stop the fluid at one point today if her blood pressure tolerates
[2017-04-05] MEDS ORDERED: Senna Tab 8.6 MG TAB PO PRN (08:46)
--- NOTE | 2017-04-05 09:04 | CONSULT ---
Consult Note - Consult Consult Date: 04/05/17 Reason for Consult: PreOp Consulation : General Surgery Requesting Physician: Dr. Smart Primary Care Provider: Ana Larsen MD - History of Present Illness History of Present Illness: Patient is a 76-year-old female who reports problems began Wednesday. She wasn't feeling well. She developed a fever with chills, body aches, and joint aches, she reports her temperature was 103. She took some medication and rested. On she went to the open access clinic. She was seen and evaluated. Chest x-ray was unremarkable. Lab work was essentially unremarkable with the exception of a slight elevation of her AST and ALT. She was started on antibiotics. She reports she spent the rest of the day and Wednesday in bed. She continued to have intermittent fevers and chills. She presented back to the open access clinic on Wednesday and was sent to the emergency room. In the emergency room she had a temperature of 102+. Blood cultures were negative. Urinalysis was unremarkable. She had a CTA of her chest which showed no infiltrates and no pulmonary embolism. Subsequently she had a head CT which was unremarkable. She had a CT scan of her abdomen and pelvis which showed a gallstone in the neck of her gallbladder. There was no gallbladder wall thickening. Her AST and ALT actually decreased. She was admitted to the hospitalist service and started on antibiotics. The diagnosis was presumed bronchitis. Wednesday she developed a fever to 102+. Dr. Smart did the CT of the abdomen at that time with the only finding of a gallstone. There was no obvious gallbladder wall thickening. There is no obvious pericholecystic fluid. There is no obvious biliary ductal dilation. No other source of her fever was identified. I was asked to see her for evaluation. Her liver function tests show AST and ALT to both be approximately 70. Her bilirubin and alkaline phosphatase are normal. Her white count has remained normal. Her amylase and lipase have been normal 2. She denies abdominal pain. She denies abdominal tenderness. She's had no nausea. She had a small emesis. She denies bloating or gassy feeling. She does feel constipated. She has not had diarrhea. She had an elevated d-dimer. She has an elevated C-reactive protein. This morning her liver function tests are remarkable only for mild elevation of her AST and ALT. Her white count remains normal as does her amylase and lipase. An ultrasound is pending shortly. Patient is status post splenectomy. She had a traumatic injury and had a splenectomy 13 years ago. She developed bilateral pulmonary emboli after that. There is a question of a pulmonary emboli also about 3 years ago. Patient is on Xarelto for the same. Her last dose was Wednesday morning. It is been held since that time in case she needs surgery. Patient reports she had a similar episode in 2014. [address] Smart there was no obvious source for her fevers at that time. Review of Systems - Constitutional Constitutional: REPORTS: Fever/Chills, Diffuse Arthralgias, Diffuse Myalgias - Gastrointestinal Gastrointestinal / Abdominal: REPORTS: Nausea, Vomiting (One small emesis.), Constipation. DENIES: Negative System Review, Diarrhea, Abdominal Pain, Bloody Stool, Poor Appetite, Heartburn, Regurgitation, Bloating, Lactose Intolerance, Melena, Bright Red Blood Per Rectum, Other, See HPI Past Medical History Medical History: 1. Hypertension(history of). 2. Hypercholesterolemia. 3. 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 4. 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 5. history of pulmonary embolism. 6. history of pneumonia Surgical History: 1. Splenectomy after an accident. 2. Acoustic neuroma surgery about 5 years ago. 3. Cataract extraction. 4. Hysterectomy with unilateral oophorectomy. 5. Tonsillectomy and adenoidectomy Pertinent Family History: History of coronary artery disease in her father. Tobacco Use: Never Smoker Substance Use Type: None Medication / Allergies Home Medications: Home Medications Medication Instructions Recorded Confirmed Type Multivitamin [Multivitamins] 1 each PO DAILY 06/10/12 04/03/17 History Docusate Sodium [Stool Softener] 100 mg PO DAILY cap 10/23/15 04/03/17 History Ibuprofen/Diphenhydramine [Advil 1 tab PO PRN tab 10/23/15 04/03/17 History Pm Caplet] Estradiol Vaginal Cream 0.01% 1 applic VAGINAL 2XW #1 tube 02/24/16 04/03/17 Clinic [Estrace Vaginal Cream 0.01%] Folic Acid 1 tab PO QID #120 tab 03/02/16 04/03/17 Clinic Spironolactone 1 tab PO DAILY #90 tab 04/27/16 04/03/17 Clinic Pravastatin Sodium [Pravachol] 1 tab-cap PO DAILY #90 11/19/16 04/03/17 Clinic Zolpidem Tartrate 0.5 - 1 tab-cap PO QHS PRN #30 12/01/16 04/03/17 Clinic tab-cap Potassium Chloride [Klor-Con 10] 1 tab-cap PO QD #90 tab 01/26/17 04/03/17 Clinic Oxycodone HCl/Acetaminophen 1 each PO BID PRN #30 tab 02/24/17 04/03/17 Clinic [Percocet 5-325 Mg Tablet] Rivaroxaban [Xarelto] 1 tab-cap PO DAILY #90 tab 02/26/17 04/03/17 [facility] Cefdinir 300 mg PO Q12H #20 cap 04/01/17 04/03/17 Clinic Allergies/Adverse Reactions: Allergies Allergy/AdvReac Type Severity Reaction Status Date / Time atorvastatin calcium Allergy Intermediate HIGH Verified 04/04/17 18:21 [From Lipitor] ANXIETY pseudoephedrine HCl Allergy Intermediate TACHYCARDIA Verified 04/04/17 18:21 [From Sudafed] vancomycin AdvReac Severe ITCHING Verified 04/04/17 18:21 alendronate sodium AdvReac Intermediate muscle Verified 04/04/17 18:21 [From Fosamax] joint and pain Exam - Vitals Vital Signs: Vital Signs Temperature 98.3 F Temperature Source Oral Pulse Rate [Apical] 71 Pulse Rate [Pulse Oximeter] 77 Pulse Rate 70 Respiratory Rate 20 Blood Pressure [Left Arm] 99/44 Blood Pressure 84/45 Pulse Ox 92 Oxygen Flow Rate 2 Oxygen Delivery Method Nasal Cannula Height 5 ft 4 in Weight 70.488 kg - General General Appearance: POSITIVE: No Acute Distress, Cooperative - Respiratory Respiratory Exam: POSITIVE: Breathing Non Labored, Decreased Breath Sounds ( Bilateral bases), Rales (Bilateral bases), Crackles (Bilateral bases) - Cardiovascular Cardiovascular Exam: POSITIVE: RRR, No Murmur - GI/Abdominal GI/Abdominal Exam: POSITIVE: Normal Bowel Sounds, Non Tender, Non Distended, Soft Additional GI/Abdominal Exam Details: No focal abdominal findings. Negative Ramirez's sign. - Neurological Neurological Exam: POSITIVE: Oriented x 3 - Psychiatric Psychiatric Exam: POSITIVE: Normal Affect, Normal Mood Results - Labs CBC and BMP: 04/05/17 04:30 04/05/17 04:30 Labs - Last 24 Hours: Laboratory Results 04/04/17 04/05/17 Range/Units 21:02 04:30 WBC 10.44 (4.8-10.8) 10^3/uL RBC 3.56 L (4.20-5.40) 10^6/uL Hgb 11.4 L (12.0-16.0) g/dL Hct 32.0 L (37.0-47.0) % MCV 89.9 (81-99) FL MCH 32.0 H (27-31) PG MCHC 35.6 (33-37) g/dL RDW Std Deviation 47.4 (39-50) fL RDW Coeff of Rigoberto 14.9 H (11.5-14.5) % Plt Count 246 (140-350) 10*3/uL MPV 9.1 (7.4-12.2) FL Immature Gran % (Auto) 0.7 (0-5) % Neut % (Auto) 82.9 H (50-80) % Lymph % (Auto) 11.4 (10-50) % Stanley % (Auto) 4.5 L (5-15) % Eos % (Auto) 0 (0-8) % Baso % (Auto) 0.5 (0-1) % Immature Gran # (Auto) 0.07 10*3/UL Neut # (Auto) 8.66 10*3/UL Lymph # (Auto) 1.19 10*3/uL Stanley # (Auto) 0.47 (0.3-0.8) 10*3/UL Eos # (Auto) 0 10*3/UL Baso # (Auto) 0.05 10*3/UL WBC Morphology Comment Normal morphology (NORM) Plt Morphology Comment Normal morphology (NORM) RBC Morph Comment Normal morphology (NORM) Sodium 129 L (135-145) meq/L Potassium 4.2 (3.8-5.2) meq/L Chloride 103 (98-112) meq/L Carbon Dioxide 18 L (23-33) meq/L Anion Gap 8 (5-20) BUN 14 (7-22) mg/dL Creatinine 1.1 (0.50-1.20) mg/dL Estimated GFR (>60 ml/min/1.73m(2)) BUN/Creatinine Ratio 12.72 (6-20) Glucose 83 (78-110) mg/dL Calculated Osmolality 267.0 (267-292) mOsm/kg Calcium 7.9 L (8.7-10.7) mg/dL Total Bilirubin 0.3 (0.3-1.2) mg/dL AST 69 H (8-39) IU/L ALT 70 H (9-52) IU/L Alkaline Phosphatase 64 (38-126) IU/L C-Reactive Protein 15.7 H (0.0-0.9) mg/dL Total Protein 5.2 L (6.1-8.0) g/dL Albumin 2.6 L (3.5-4.8) g/dL Globulin 2.6 (2.50-4.10) g/dL Albumin/Globulin Ratio 1.00 L (1.3-2.0) mg/g Amylase 62 51 (30-110) U/L Lipase 237 186 (23-300) IU/L - Imaging Status: Image Reviewed by Me (Patient is solitary gallstone in the neck of the gallbladder. No obvious gallbladder wall thickening. No pericholecystic fluid. ), Report Reviewed by Me (For the remainder of the x-rays done.) Assessment and Plan - Patient Problems (1) Cholelithiasis Current Visit: Yes Status: Acute Priority: Medium Diagnosis Date: 04/04/17 Comment: Patient does have a gallstone. Does not seem to be the source of her fever. No obvious gallbladder inflammation. No abdominal pain or tenderness. White count, alkaline phosphatase, and bilirubin all normal. Amylase and lipase normal. Slight elevation of her AST and ALT. Certainly not consistent with acute cholecystitis. Ultrasound is pending. If there is no pericholecystic fluid or significant wall thickening I doubt this is related to her gallbladder. Patient should be seen in the office in a couple weeks to discuss elective gallbladder removal. Qualifiers: Cholelithiasis location: gallbladder Cholecystitis presence: without cholecystitis Biliary obstruction: without biliary obstruction Qualified Description: Calculus of gallbladder without cholecystitis without obstruction Qualifier Code(s): (K80.20) Calculus of gallbladder without cholecystitis without obstruction (2) Fever of unknown origin (FUO) Current Visit: Yes Status: Acute Priority: High Diagnosis Date: 04/01/17 Comment: Etiology remains unclear. If ultrasound does not look like it is her gallbladder consider infectious disease consult as the patient is postsplenectomy. Consider cardiac echo. Further workup recommendations per the hospitalist.
[2017-04-05] MEDS: Sodium Chloride 0.9% 1,000 ML IV SCH (09:38)
[2017-04-05] MEDS: DOCUSATE 100 MG CAPSULE PO SCH ×2 (10:26→20:21)
--- NOTE | 2017-04-05 12:10 | DI ---
GALLBLADDER AND LIVER ULTRASOUND, 04/05/2017 9:01 AM: Clinical History: Abnormal liver function test. Previous Exam: None at this facility. Technique: Scans are performed through the right upper quadrant in multiple projections. The patient was rolled from side to side and the gallbladder was balloted with the probe to facilitate visualizat ion of small gallstones. The gallbladder is moderately well distended and has a normal wall thickness. There are at least 2 ga llstones located in the neck of the gallbladder and these do not change position with changing the pa tient's position. There is no Ramirez's sign. The gallbladder wall is echogenic without evidence of ed ashley. The gallbladder wall thickness is 2-3 mm. The common bile duct measures 2 mm. The pancreas is vi sualized from the head to the body and is normal. The visualized portions of the liver, right kidney, and IVC are normal. The aorta is normal. Readin. Cholelithiasis without evidence of acute cholecystitis. There is no Ramirez's sign. The gallbladde r wall is echogenic and this may represent chronic cholecystitis. The common bile duct measures 2 mm. 2. The liver, right kidney, pancreas, IVC, and aorta are normal.
[2017-04-05] MEDS: NORMAL SALINE 10 ML SYRINGE FLUSH IVP PRN (12:28)
[2017-04-05] MEDS: cefTRIAXone Inj 2 GM in Sodium Chloride 0.9% 100 ML IV SCH (12:29)
[2017-04-05] MEDS: IBUPROFEN 400 MG TABLET PO PRN (19:46)
[2017-04-05] MEDS: Pravastatin Tab 40 MG TAB PO SCH (20:21)
[2017-04-06 04:42] LABS: BASOPHILS # (AUTO) 0.12 10*3/UL; BASOPHILS % (AUTO) 1.2 % (0-1); EOSINOPHILS # (AUTO) 0.02 10*3/UL; EOSINOPHILS % (AUTO) 0.2 % (0-8); HEMATOCRIT 29.9 % (37.0-47.0); HEMOGLOBIN 11.1 g/dL (12.0-16.0); LYMPHOCYTES # (AUTO) 1.73 10*3/uL; MEAN CORPUSCULAR HEMOGLOBIN 32.9 PG (27-31); MEAN CORPUSCULAR HGB CONC 37.1 g/dL (33-37); MEAN CORPUSCULAR VOLUME 88.7 FL (81-99); MEAN PLATELET VOLUME 9.2 FL (7.4-12.2); NEUTROPHILS % (AUTO) 69.2 % (50-80); RED BLOOD COUNT 3.37 10^6/uL (4.20-5.40)
[2017-04-06 04:44] LABS: PLATELET MORPHOLOGY COMMENT NORMAL MORPHOLOGY (NORM); RBC MORPHOLOGY COMMENT NORMAL MORPHOLOGY (NORM); WBC MORPHOLOGY COMMENT NORMAL MORPHOLOGY (NORM)
[2017-04-06 04:49] LABS: CALCIUM 8.2 mg/dL (8.7-10.7); SERUM ALBUMIN 2.7 g/dL (3.5-4.8)
--- NOTE | 2017-04-06 07:35 | PDOC(PROG) ---
Date and Time of Service: 04/06/2017 7:30 AM Interval History: Subjective Patient feels a little bit better today compared to yesterday, she did have a bowel movement. Still no abdominal pain. Some shortness of breath she said. No cough. She did have a fever of 101 in the evening. Objective : Data - Labs CBC and BMP: 04/06/17 04:30 04/06/17 04:30 Labs - Last 24 Hours: Laboratory Results 04/06/17 Range/Units 04:30 WBC 9.97 (4.8-10.8) 10^3/uL RBC 3.37 L (4.20-5.40) 10^6/uL Hgb 11.1 L (12.0-16.0) g/dL Hct 29.9 L (37.0-47.0) % MCV 88.7 (81-99) FL MCH 32.9 H (27-31) PG MCHC 37.1 H (33-37) g/dL RDW Std Deviation 47.3 (39-50) fL RDW Coeff of Rigoberto 15.0 H (11.5-14.5) % Plt Count 251 (140-350) 10*3/uL MPV 9.2 (7.4-12.2) FL Immature Gran % (Auto) 1.0 (0-5) % Neut % (Auto) 69.2 (50-80) % Lymph % (Auto) 17.4 (10-50) % Treasure % (Auto) 11.0 (5-15) % Eos % (Auto) 0.2 (0-8) % Baso % (Auto) 1.2 H (0-1) % Immature Gran # (Auto) 0.10 10*3/UL Neut # (Auto) 6.90 10*3/UL Lymph # (Auto) 1.73 10*3/uL Treasure # (Auto) 1.10 H (0.3-0.8) 10*3/UL Eos # (Auto) 0.02 10*3/UL Baso # (Auto) 0.12 10*3/UL WBC Morphology Comment Normal morphology (NORM) Plt Morphology Comment Normal morphology (NORM) RBC Morph Comment Normal morphology (NORM) Sodium 128 L (135-145) meq/L Potassium 3.9 (3.8-5.2) meq/L Chloride 103 (98-112) meq/L Carbon Dioxide 20 L (23-33) meq/L Anion Gap 5 (5-20) BUN 17 (7-22) mg/dL Creatinine 1.0 (0.50-1.20) mg/dL Estimated GFR (>60 ml/min/1.73m(2)) BUN/Creatinine Ratio 17.00 (6-20) Glucose 100 (78-110) mg/dL Calculated Osmolality 267.0 (267-292) mOsm/kg Calcium 8.2 L (8.7-10.7) mg/dL Total Bilirubin 0.4 (0.3-1.2) mg/dL AST 62 H (8-39) IU/L ALT 73 H (9-52) IU/L Alkaline Phosphatase 71 (38-126) IU/L Total Protein 5.4 L (6.1-8.0) g/dL Albumin 2.7 L (3.5-4.8) g/dL Globulin 2.7 (2.50-4.10) g/dL Albumin/Globulin Ratio 1.00 L (1.3-2.0) mg/g Objective : Exam - General General Appearance: No Acute Distress, Cooperative - Head Head Exam: Normal Inspection, Atraumatic - Eye Eye Exam: Normal Appearance - ENT ENT Exam: Normal Exam - Neck Neck Exam: Normal Inspection - Respiratory Additional Respiratory Exam Details: Few crackles at the bases - Cardiovascular Cardiovascular Exam: RRR - GI/Abdominal GI/Abdominal Exam: Normal Bowel Sounds, Non Tender, Non Distended, Soft - Rectal Rectal Exam: Deferred - External Exam: Deferred - Extremities Extremities Exam: Normal Inspection - Back Back Exam: Normal Inspection - Neurological Neurological Exam: Alert, Oriented x 3, CN II-XII Intact, Moves All Extremities Equally - Psychiatric Psychiatric Exam: Normal Affect - Integumentary Integumentary Exam: Normal Color Assessment and Plan - Patient Problems (1) Fever Current Visit: Yes Status: Acute Comment: Etiology still unclear, I did speak with infectious disease they suggested to continue Rocephin for now. Since she continued to have the fever I think we'll keep her until we make sure that she does not have fever for 24 hours before we discharge her home. She agrees on staying. (2) DVT prophylaxis Current Visit: No Status: Acute Comment: She is normally on Xarelto. I think we'll hold off today as we will repeat her x-ray see if there is worsening pleural effusion and and whether she needs to have a thoracocentesis. Although she is not very keen on it. Her blood pressure is borderline if blood pressure goes up we may restart her on a diuretic. She said she cannot tolerate Lasix as that would give her anxiety so we may start on the lower dosage of Aldactone. (3) Pleural effusion Current Visit: No Status: Acute Comment: We'll repeat her x-ray as I said today. And see the size of it. We' ll think about diuretic versus thoracocentesis. (4) Hyponatremia Current Visit: Yes Status: Acute Comment: This may be secondary to the illness or secondary to the fluid that we gave her will see her x ray and then will decide whether we need to give her a diuretic. (5) Cholelithiasis Current Visit: Yes Status: Acute Priority: Medium Diagnosis Date: 04/04/17 Comment: She will follow-up later on as an outpatient with Dr. Barnhart to discuss cholecystectomy. Her LFT still mildly elevated may be secondary to the illness itself. We did send for hepatitis screen and rheumatoid and RENETTA. Qualifiers: Cholelithiasis location: gallbladder Cholecystitis presence: without cholecystitis Biliary obstruction: without biliary obstruction Qualified Description: Calculus of gallbladder without cholecystitis without obstruction Qualifier Code(s): (K80.20) Calculus of gallbladder without cholecystitis without obstruction
[2017-04-06] MEDS ORDERED: Spironolactone Tab 25 MG TAB PO ONE (09:33)
--- NOTE | 2017-04-06 09:44 | DI ---
PA /LATERAL CHEST X-RAY, 04/06/2017 7:25 AM : Clinical History: Shortness of breath. Previous Exam: 04/01/2017. There is no acute soft tissue or bony abnormality. There is cardiomegaly with CHF. Bilateral small pl eural effusions are present. There is atelectasis of the left lower lobe. The right hilum is prominen t but this is probably secondary to vascular engorgement. There are no pulmonary nodules. Readin. Cardiomegaly with CHF and small bilateral pleural effusions. There is left lower lobe atelectasis . 2. The right hilum is prominent but this is probably secondary to vascular engorgement related to th e CHF. A short-term followup film in 2-4 weeks is recommended to verify that the right hilum has reve rted to its original appearance.
[2017-04-06] MEDS: DOCUSATE 100 MG CAPSULE PO SCH ×2 (10:05→20:13)
[2017-04-06] MEDS: cefTRIAXone Inj 2 GM in Sodium Chloride 0.9% 100 ML IV SCH (10:06)
[2017-04-06] MEDS: NORMAL SALINE 10 ML SYRINGE FLUSH IVP PRN (10:07)
--- NOTE | 2017-04-06 11:20 | PDOC(PROG) ---
Date and Time of Service: 04/06/2017 11:20 AM Interval History: Low-grade temp to 101.2 last night. Reports less chills. Arthralgias and myalgias are better. Still continues to deny abdominal pain. No abdominal tenderness either. She did have a bowel movement. Ultrasound yesterday showed an echogenic gallbladder wall. This was consistent with chronic cholecystitis. No Ramirez sign. No wall thickening. The stone does appear lodged in the neck of the gallbladder. Bile ducts are normal. Specifically there is no evidence of acute cholecystitis. White count remains normal. Blood cultures negative at 48 hours. Chest x-ray today shows congestive heart failure pattern. Patient had been started on a diuretic. AST and ALT slightly elevated. Bilirubin and alkaline phosphatase normal Objective : Data - Labs CBC and BMP: 04/06/17 04:30 04/06/17 04:30 Labs - Last 24 Hours: Laboratory Results 04/06/17 Range/Units 04:30 WBC 9.97 (4.8-10.8) 10^3/uL RBC 3.37 L (4.20-5.40) 10^6/uL Hgb 11.1 L (12.0-16.0) g/dL Hct 29.9 L (37.0-47.0) % MCV 88.7 (81-99) FL MCH 32.9 H (27-31) PG MCHC 37.1 H (33-37) g/dL RDW Std Deviation 47.3 (39-50) fL RDW Coeff of Rigoberto 15.0 H (11.5-14.5) % Plt Count 251 (140-350) 10*3/uL MPV 9.2 (7.4-12.2) FL Immature Gran % (Auto) 1.0 (0-5) % Neut % (Auto) 69.2 (50-80) % Lymph % (Auto) 17.4 (10-50) % [place] % (Auto) 11.0 (5-15) % Eos % (Auto) 0.2 (0-8) % Baso % (Auto) 1.2 H (0-1) % Immature Gran # (Auto) 0.10 10*3/UL Neut # (Auto) 6.90 10*3/UL Lymph # (Auto) 1.73 10*3/uL [place] # (Auto) 1.10 H (0.3-0.8) 10*3/UL Eos # (Auto) 0.02 10*3/UL Baso # (Auto) 0.12 10*3/UL WBC Morphology Comment Normal morphology (NORM) Plt Morphology Comment Normal morphology (NORM) RBC Morph Comment Normal morphology (NORM) Sodium 128 L (135-145) meq/L Potassium 3.9 (3.8-5.2) meq/L Chloride 103 (98-112) meq/L Carbon Dioxide 20 L (23-33) meq/L Anion Gap 5 (5-20) BUN 17 (7-22) mg/dL Creatinine 1.0 (0.50-1.20) mg/dL Estimated GFR (>60 ml/min/1.73m(2)) BUN/Creatinine Ratio 17.00 (6-20) Glucose 100 (78-110) mg/dL Calculated Osmolality 267.0 (267-292) mOsm/kg Calcium 8.2 L (8.7-10.7) mg/dL Total Bilirubin 0.4 (0.3-1.2) mg/dL AST 62 H (8-39) IU/L ALT 73 H (9-52) IU/L Alkaline Phosphatase 71 (38-126) IU/L Total Protein 5.4 L (6.1-8.0) g/dL Albumin 2.7 L (3.5-4.8) g/dL Globulin 2.7 (2.50-4.10) g/dL Albumin/Globulin Ratio 1.00 L (1.3-2.0) mg/g - Imaging Imaging Details: See history of present illness regarding gallbladder ultrasound. - Vital Signs Vital Signs and I&O: Vital Signs - Last Taken Temperature 97.6 F 04/06/17 07:16 Pulse Rate 75 04/06/17 07:16 Respiratory Rate 18 04/06/17 07:16 Blood Pressure 107/53 04/06/17 07:16 Pulse Ox 94 04/06/17 11:00 Intake and Output (24hr x 4 totals) 04/04/17 04/05/17 04/06/17 04/07/17 05:59 05:59 05:59 05:59 Intake Total 820 Output Total 500 Balance 320 Objective : Exam - General General Appearance: No Acute Distress, Cooperative - Respiratory Respiratory Exam: Breathing Non Labored, Rales (At bases), Crackles (At bases) - Cardiovascular Cardiovascular Exam: RRR, No Murmur - GI/Abdominal GI/Abdominal Exam: Normal Bowel Sounds, Non Tender, Non Distended, Soft Additional GI/Abdominal Exam Details: Benign abdominal examination. - Neurological Neurological Exam: Alert, Oriented x 3 - Psychiatric Psychiatric Exam: Normal Affect, Normal Mood Assessment and Plan - Patient Problems (1) Cholelithiasis Current Visit: Yes Status: Acute Priority: Medium Diagnosis Date: 04/04/17 Comment: The patient does have a gallstone lodged in the neck of her gallbladder. No evidence of acute cholecystitis. No evidence the gallbladder is contributing to her fevers. We will recommend an elective cholecystectomy once the patient had recovered from her acute illness. The patient should see her primary care provider after discharge. Should see me in 2 weeks to discuss elective cholecystectomy to prevent complications of a stone lodged in the neck of her gallbladder. I discussed this with the patient and her . We will sign off the case for now. Again follow-up in my office in approximately 2 weeks Qualifiers: Cholelithiasis location: gallbladder Cholecystitis presence: without cholecystitis Biliary obstruction: without biliary obstruction Qualified Description: Calculus of gallbladder without cholecystitis without obstruction Qualifier Code(s): (K80.20) Calculus of gallbladder without cholecystitis without obstruction (2) Fever of unknown origin (FUO) Current Visit: Yes Status: Acute Priority: High Diagnosis Date: 04/01/17 Comment: Per the hospitalist.
[2017-04-06] MEDS: IBUPROFEN 400 MG TABLET PO PRN (18:57)
[2017-04-06] MEDS: Pravastatin Tab 40 MG TAB PO SCH (20:13)
[2017-04-06] MEDS ORDERED: CALCIUM CARBONATE 500 MG (TUMS) CHEWABLE TABLET PO PRN (21:14)
[2017-04-06] MEDS: ACETAMINOPHEN 325 MG TABLET PO PRN (21:39)
[2017-04-07 05:01] LABS: BASOPHILS # (AUTO) 0.04 10*3/UL; BASOPHILS % (AUTO) 0.5 % (0-1); EOSINOPHILS % (AUTO) 1.2 % (0-8); HEMATOCRIT 29.6 % (37.0-47.0); HEMOGLOBIN 10.3 g/dL (12.0-16.0); LYMPHOCYTES # (AUTO) 1.88 10*3/uL; MEAN CORPUSCULAR HEMOGLOBIN 30.7 PG (27-31); MEAN CORPUSCULAR HGB CONC 34.8 g/dL (33-37); MEAN CORPUSCULAR VOLUME 88.1 FL (81-99); MONOCYTES # (AUTO) 1.05 10*3/UL (0.3-0.8); MONOCYTES % (AUTO) 12.8 % (5-15); NEUTROPHILS # (AUTO) 5.04 10*3/UL; NEUTROPHILS % (AUTO) 61.5 % (50-80); RED BLOOD COUNT 3.36 10^6/uL (4.20-5.40)
[2017-04-07 05:12] LABS: CALCIUM 8.5 mg/dL (8.7-10.7); SERUM ALBUMIN 2.6 g/dL (3.5-4.8)
[2017-04-07 05:26] LABS: PLATELET MORPHOLOGY COMMENT NORMAL MORPHOLOGY (NORM); RBC MORPHOLOGY COMMENT NORMAL MORPHOLOGY (NORM); WBC MORPHOLOGY COMMENT NORMAL MORPHOLOGY (NORM)
--- NOTE | 2017-04-07 07:33 | PDOC(PROG) ---
Date and Time of Service: 04/07/2017 7:28 AM Interval History: Subjective Patient feels better, body aches and the chills that she had seem to be much improved. Shortness of breath is better. She said she did walk yesterday around the nurse's station like 4 times. She feels she is getting stronger. Objective : Data - Labs CBC and BMP: 04/07/17 04:20 04/07/17 04:20 Labs - Last 24 Hours: Laboratory Results 04/06/17 04/07/17 Range/Units 04:30 04:20 WBC 8.20 (4.8-10.8) 10^3/uL RBC 3.36 L (4.20-5.40) 10^6/uL Hgb 10.3 L (12.0-16.0) g/dL Hct 29.6 L (37.0-47.0) % MCV 88.1 (81-99) FL MCH 30.7 (27-31) PG MCHC 34.8 (33-37) g/dL RDW Std Deviation 47.4 (39-50) fL RDW Coeff of Rigoberto 15.1 H (11.5-14.5) % Plt Count 293 (140-350) 10*3/uL MPV 10.0 (7.4-12.2) FL Immature Gran % (Auto) 1.1 (0-5) % Neut % (Auto) 61.5 (50-80) % Lymph % (Auto) 22.9 (10-50) % [place] % (Auto) 12.8 (5-15) % Eos % (Auto) 1.2 (0-8) % Baso % (Auto) 0.5 (0-1) % Immature Gran # (Auto) 0.09 10*3/UL Neut # (Auto) 5.04 10*3/UL Lymph # (Auto) 1.88 10*3/uL [place]eves # (Auto) 1.05 H (0.3-0.8) 10*3/UL Eos # (Auto) 0.10 10*3/UL Baso # (Auto) 0.04 10*3/UL WBC Morphology Comment Normal morphology (NORM) Plt Morphology Comment Normal morphology (NORM) RBC Morph Comment Normal morphology (NORM) Sodium 128 L (135-145) meq/L Potassium 3.4 L (3.8-5.2) meq/L Chloride 102 (98-112) meq/L Carbon Dioxide 19 L (23-33) meq/L Anion Gap 7 (5-20) BUN 17 (7-22) mg/dL Creatinine 1.0 (0.50-1.20) mg/dL Estimated GFR (>60 ml/min/1.73m(2)) BUN/Creatinine Ratio 17.00 (6-20) Glucose 85 (78-110) mg/dL Calculated Osmolality 266.0 L (267-292) mOsm/kg Calcium 8.5 L (8.7-10.7) mg/dL Total Bilirubin 0.3 (0.3-1.2) mg/dL AST 65 H (8-39) IU/L ALT 69 H (9-52) IU/L Alkaline Phosphatase 68 (38-126) IU/L Total Protein 5.2 L (6.1-8.0) g/dL Albumin 2.6 L (3.5-4.8) g/dL Globulin 2.6 (2.50-4.10) g/dL Albumin/Globulin Ratio 1.00 L (1.3-2.0) mg/g Rheumatoid Factor 12.2 H (0.00-11.99) IU/ML Objective : Exam - General General Appearance: No Acute Distress, Cooperative - Head Head Exam: Normal Inspection - Eye Eye Exam: Normal Appearance - ENT ENT Exam: Normal Exam - Neck Neck Exam: Normal Inspection - Respiratory Additional Respiratory Exam Details: Few crackles heard at the bases more on the left side. - Cardiovascular Cardiovascular Exam: RRR - GI/Abdominal GI/Abdominal Exam: Normal Bowel Sounds, Non Tender, Non Distended, Soft - Rectal Rectal Exam: Deferred - External Exam: Deferred - Extremities Extremities Exam: Normal Inspection - Back Back Exam: Normal Inspection - Neurological Neurological Exam: Alert, Oriented x 3, CN II-XII Intact, No Facial Droop, Speech Intact / Clear, Moves All Extremities Equally - Psychiatric Psychiatric Exam: Normal Affect Assessment and Plan - Patient Problems (1) Fever Current Visit: Yes Status: Acute Comment: Seems to be improving. Etiology still unclear. 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 (2) DVT prophylaxis Current Visit: No Status: Acute Comment: We will restart her on Xarelto. (3) Pleural effusion Current Visit: No Status: Acute Comment: The chest x-ray did show bilateral small pleural effusions with atelectasis. She had an ECHO 2 years ago and that showed diastolic dysfunction. I think the fluid she got contributed to the pleural effusion. We restarted her on Aldactone at low dosage her weight is down today she feel better and shortness of breath is better so I think will increase the Aldactone to her previous normal dosage. (4) Hyponatremia Current Visit: Yes Status: Acute Comment: Probably secondary to the illness and possibly to the fluid overload (5) Cholelithiasis Current Visit: Yes Status: Acute Priority: Medium Diagnosis Date: 04/04/17 Comment: She will need follow-up with Dr. Barnhart as an outpatient and she'll be seen in 2 weeks Qualifiers: Cholelithiasis location: gallbladder Cholecystitis presence: without cholecystitis Biliary obstruction: without biliary obstruction Qualified Description: Calculus of gallbladder without cholecystitis without obstruction Qualifier Code(s): (K80.20) Calculus of gallbladder without cholecystitis without obstruction
[2017-04-07] MEDS ORDERED: Rivaroxaban Tab 10 MG TAB PO SCH ×2 (09:00)
[2017-04-07] MEDS ORDERED: Spironolactone Tab 25 MG TAB PO SCH (09:00)
[2017-04-07] MEDS: Spironolactone Tab 50 MG TAB PO SCH (09:23)
[2017-04-07] MEDS: Potassium Chloride Tab 10 MEQ TAB PO SCH (09:23)
[2017-04-07] MEDS: PANTOPRAZOLE 40 MG TABLET PO SCH (09:23)
[2017-04-07] MEDS: Rivaroxaban Tab 10 MG TAB PO SCH (09:23)
[2017-04-07] MEDS: DOCUSATE 100 MG CAPSULE PO SCH ×2 (09:31→21:58)
[2017-04-07] MEDS: NORMAL SALINE 10 ML SYRINGE FLUSH IVP PRN (11:29)
[2017-04-07] MEDS: cefTRIAXone Inj 2 GM in Sodium Chloride 0.9% 100 ML IV SCH (11:29)
[2017-04-07 11:41] LABS: HEP B CORE IGM ANTIBODY Negative (Negative); HEPATITIS A IGM Negative (Negative); HEPATITIS B SURFACE AG Negative (Negative)
[2017-04-07] MEDS: Pravastatin Tab 40 MG TAB PO SCH (20:49)
[2017-04-07] MEDS: ACETAMINOPHEN 325 MG TABLET PO PRN (20:49)
[2017-04-08 03:52] LABS: BUN/CREATININE RATIO 15.55 (6-20); CALCIUM 8.9 mg/dL (8.7-10.7); SERUM ALBUMIN 2.7 g/dL (3.5-4.8)
[2017-04-08 04:39] VITALS: RESP 20
[2017-04-08] MEDS: PANTOPRAZOLE 40 MG TABLET PO SCH (07:06)
[2017-04-08] MEDS: Potassium Chloride Tab 10 MEQ TAB PO SCH (08:05)
[2017-04-08] MEDS: Spironolactone Tab 50 MG TAB PO SCH (08:05)
[2017-04-08] MEDS: Rivaroxaban Tab 10 MG TAB PO SCH (08:06)
[2017-04-08] MEDS: DOCUSATE 100 MG CAPSULE PO SCH (08:08)
--- NOTE | 2017-04-08 08:22 | DCSUMMARY ---
Hospitalization Summary Admit Date: 04/03/17 Discharge Date: 04/08/17 Hospital Course: Discharge diagnosis 1. Febrile illness improved etiology unclear 2. Cholelithiasis 3. Abnormal LFTs 4. Bilateral small pleural effusions with left lower lobe atelectasis probably volume overload 5. Status post splenectomy 6. History of acoustic neuroma status post surgery 7. History of PE Hospital course This is a 76 years old female with medical history significant for history of for acoustic neuroma status post surgery, history of splenectomy before and history of PE on anticoagulation who started to have chills a week before admission with fever as high as 103 she went to the next day to the urgent clinic they did lab work and a chest x-ray they were nonrevealing, she was put on Omnicef and sent home. However she continued to have intermittent fever and decreased appetite and then she presented to the ER. Her temperature was 102 showed AST and ALT were slightly abnormal her white count was not elevated she had a CT of the chest which showed no PE and no evidence of infiltrate. She was admitted to the hospital and was put on antibiotics as there was a question maybe she had bronchitis when she came in. Blood culture was already taken but she was already on Omnicef. She did have a CT of the head which was not remarkable. I saw her the next day she continued to have the fever we continued with IV antibiotics I thought there may be a gallstone on CT of the chest so we did a CT of the abdomen and did prove that she has cholelithiasis , the next day she had ultrasound which did show cholelithiasis with stones lodged in the neck gallbladder but there was no gallbladder wall thickening she was seen by Dr. Barnhart who decided to see her as an outpatient. I did speak with infectious disease they recommended to continue the Rocephin. Gradually things started to improve with fever resolved. She did have some small pleural effusions I thought this was secondary to overload we did restart her on her Aldactone after holding it because her blood pressure was borderline. On The day of discharge she was doing better her weight came down to 149.0 was as high as 156. Her shortness of breath also improved. Her exam on day of discharge was not remarkable except occasional crackles at the bases. We thought she could be discharged home should get a final dose of for Rocephin and follow-up with her primary in follow-up also with Dr. Barnhart as an outpatient. Reason for her febrile illness is unclear, we elected to treat her because of her history of splenectomy and a high fever that she had an elevated inflammatory markers. Laboratory Results 04/03/17 04/03/17 04/03/17 Range/Units 11:13 11:30 12:00 WBC (4.8-10.8) 10^3/uL RBC (4.20-5.40) 10^6/uL Hgb (12.0-16.0) g/dL Hct (37.0-47.0) % MCV (81-99) FL MCH (27-31) PG MCHC (33-37) g/dL RDW Std Deviation (39-50) fL RDW Coeff of Rigoberto (11.5-14.5) % Plt Count (140-350) 10*3/uL MPV (7.4-12.2) FL Immature Gran % (Auto) (0-5) % Neut % (Auto) (50-80) % Lymph % (Auto) (10-50) % [place] % (Auto) (5-15) % Eos % (Auto) (0-8) % Baso % (Auto) (0-1) % Immature Gran # (Auto) 10*3/UL Neut # (Auto) 10*3/UL Lymph # (Auto) 10*3/uL [place] # (Auto) (0.3-0.8) 10*3/UL Eos # (Auto) 10*3/UL Baso # (Auto) 10*3/UL WBC Morphology Comment (NORM) Plt Morphology Comment (NORM) RBC Morph Comment (NORM) Sodium (135-145) meq/L Potassium (3.8-5.2) meq/L Chloride (98-112) meq/L Carbon Dioxide (23-33) meq/L Anion Gap (5-20) BUN (7-22) mg/dL Creatinine (0.50-1.20) mg/dL Estimated GFR (>60 ml/min/1.73m(2)) BUN/Creatinine Ratio (6-20) Glucose (78-110) mg/dL Calculated Osmolality (267-292) mOsm/kg Lactic Acid 2.7 H (0.70-2.10) MMOL/L Calcium (8.7-10.7) mg/dL Phosphorus (2.4-4.3) mg/dl Magnesium 2.2 (1.6-2.4) mg/dL Total Bilirubin (0.3-1.2) mg/dL Conjugated Bilirubin (0.0-0.3) MG/DL Unconjugated Bilirubin (0.0-1.1) mg/dL AST (8-39) IU/L ALT (9-52) IU/L Alkaline Phosphatase (38-126) IU/L Total Creatine Kinase 114 (30-136) IU/L Troponin I < 0.012 (< 0.040) ng/mL C-Reactive Protein 15.7 H (0.0-0.9) mg/dL Total Protein (6.1-8.0) g/dL Albumin (3.5-4.8) g/dL Globulin (2.50-4.10) g/dL Albumin/Globulin Ratio (1.3-2.0) mg/g Amylase (30-110) U/L Lipase (23-300) IU/L Ur Collection Type Clean catch urine Urine Color Yellow Urine Clarity Clear (CLEAR) Urine pH 5.5 (5.0-8.5) Ur Specific [place] 1.015 (1.005-1.030) Urine Protein 30 (NEG) mg/dl Urine Glucose (UA) Negative (NEG) mg/dL Urine Ketones Negative (NEG) Urine Occult Blood Trace-lysed H (NEG) Urine Nitrate Negative (NEG) Urine Bilirubin Negative (NEG) Urine Urobilinogen 0.2 (0.2) EU/dL Ur Leukocyte Esterase Negative (NEG) Urine RBC 0-2 (NONE) /hpf Urine WBC 0-3 (NONE) Ur Squamous Epith Cells Moderate (NONE) Ur Renal Epithelial Cell None (NONE) Urine Crystals None Urine Bacteria Few (NONE) Urine Casts None (NONE) Urine Mucus Moderate (NONE) Urine Trichomonas None (NONE) Urine Yeast None (NONE) Ur Culture Indicated? Culture not set Rheumatoid Factor (0.00-11.99) IU/ML Hepatitis A IgM Ab (Negative) Hep Bs Antigen (Negative) Hep B Core IgM Ab (Negative) Hepatitis C Ab Screen (Negative) 04/04/17 04/04/17 04/04/17 Range/Units 04:15 08:35 21:02 WBC 5.65 (4.8-10.8) 10^3/uL RBC 3.86 L (4.20-5.40) 10^6/uL Hgb 12.1 (12.0-16.0) g/dL Hct 35.0 L (37.0-47.0) % MCV 90.7 (81-99) FL MCH 31.3 H (27-31) PG MCHC 34.6 (33-37) g/dL RDW Std Deviation 46.1 (39-50) fL RDW Coeff of Rigoberto 14.4 (11.5-14.5) % Plt Count 243 (140-350) 10*3/uL MPV 10.0 (7.4-12.2) FL Immature Gran % (Auto) 0.4 (0-5) % Neut % (Auto) 62.1 (50-80) % Lymph % (Auto) 27.3 (10-50) % [place] % (Auto) 9.0 (5-15) % Eos % (Auto) 0 (0-8) % Baso % (Auto) 1.2 H (0-1) % Immature Gran # (Auto) 0.02 10*3/UL Neut # (Auto) 3.51 10*3/UL Lymph # (Auto) 1.54 10*3/uL [place] # (Auto) 0.51 (0.3-0.8) 10*3/UL Eos # (Auto) 0 10*3/UL Baso # (Auto) 0.07 10*3/UL WBC Morphology Comment Normal morphology (NORM) Plt Morphology Comment Normal morphology (NORM) RBC Morph Comment Normal morphology (NORM) Sodium 129 L (135-145) meq/L Potassium 4.5 (3.8-5.2) meq/L Chloride 101 (98-112) meq/L Carbon Dioxide 20 L (23-33) meq/L Anion Gap 8 (5-20) BUN 18 (7-22) mg/dL Creatinine 1.1 (0.50-1.20) mg/dL Estimated GFR (>60 ml/min/1.73m(2)) BUN/Creatinine Ratio 16.36 (6-20) Glucose 84 (78-110) mg/dL Calculated Osmolality 268.0 (267-292) mOsm/kg Lactic Acid 1.2 (0.70-2.10) MMOL/L Calcium 8.3 L (8.7-10.7) mg/dL Phosphorus 2.9 (2.4-4.3) mg/dl Magnesium (1.6-2.4) mg/dL Total Bilirubin 0.2 L D (0.3-1.2) mg/dL Conjugated Bilirubin 0.00 (0.0-0.3) MG/DL Unconjugated Bilirubin 0 (0.0-1.1) mg/dL AST 63 H (8-39) IU/L ALT 69 H (9-52) IU/L Alkaline Phosphatase 55 (38-126) IU/L Total Creatine Kinase (30-136) IU/L Troponin I (< 0.040) ng/mL C-Reactive Protein (0.0-0.9) mg/dL Total Protein 5.8 L (6.1-8.0) g/dL Albumin 3.1 L (3.5-4.8) g/dL Globulin (2.50-4.10) g/dL Albumin/Globulin Ratio (1.3-2.0) mg/g Amylase 62 (30-110) U/L Lipase 237 (23-300) IU/L Ur Collection Type Urine Color Urine Clarity (CLEAR) Urine pH (5.0-8.5) Ur Specific [place] (1.005-1.030) Urine Protein (NEG) mg/dl Urine Glucose (UA) (NEG) mg/dL Urine Ketones (NEG) Urine Occult Blood (NEG) Urine Nitrate (NEG) Urine Bilirubin (NEG) Urine Urobilinogen (0.2) EU/dL Ur Leukocyte Esterase (NEG) Urine RBC (NONE) /hpf Urine WBC (NONE) Ur Squamous Epith Cells (NONE) Ur Renal Epithelial Cell (NONE) Urine Crystals Urine Bacteria (NONE) Urine Casts (NONE) Urine Mucus (NONE) Urine Trichomonas (NONE) Urine Yeast (NONE) Ur Culture Indicated? Rheumatoid Factor (0.00-11.99) IU/ML Hepatitis A IgM Ab (Negative) Hep Bs Antigen (Negative) Hep B Core IgM Ab (Negative) Hepatitis C Ab Screen (Negative) 04/05/17 04/06/17 04/07/17 Range/Units 04:30 04:30 04:20 WBC 10.44 9.97 8.20 (4.8-10.8) 10^3/uL RBC 3.56 L 3.37 L 3.36 L (4.20-5.40) 10^6/uL Hgb 11.4 L 11.1 L 10.3 L (12.0-16.0) g/dL Hct 32.0 L 29.9 L 29.6 L (37.0-47.0) % MCV 89.9 88.7 88.1 (81-99) FL MCH 32.0 H 32.9 H 30.7 (27-31) PG MCHC 35.6 37.1 H 34.8 (33-37) g/dL RDW Std Deviation 47.4 47.3 47.4 (39-50) fL RDW Coeff of Rigoberto 14.9 H 15.0 H 15.1 H (11.5-14.5) % Plt Count 246 251 293 (140-350) 10*3/uL MPV 9.1 9.2 10.0 (7.4-12.2) FL Immature Gran % (Auto) 0.7 1.0 1.1 (0-5) % Neut % (Auto) 82.9 H 69.2 61.5 (50-80) % Lymph % (Auto) 11.4 17.4 22.9 (10-50) % [place] % (Auto) 4.5 L 11.0 12.8 (5-15) % Eos % (Auto) 0 0.2 1.2 (0-8) % Baso % (Auto) 0.5 1.2 H 0.5 (0-1) % Immature Gran # (Auto) 0.07 0.10 0.09 10*3/UL Neut # (Auto) 8.66 6.90 5.04 10*3/UL Lymph # (Auto) 1.19 1.73 1.88 10*3/uL [place] # (Auto) 0.47 1.10 H 1.05 H (0.3-0.8) 10*3/UL Eos # (Auto) 0 0.02 0.10 10*3/UL Baso # (Auto) 0.05 0.12 0.04 10*3/UL WBC Morphology Comment Normal morphology Normal morphology Normal morphology (NORM) Plt Morphology Comment Normal morphology Normal morphology Normal morphology (NORM) RBC Morph Comment Normal morphology Normal morphology Normal morphology ( NORM) Sodium 129 L 128 L 128 L (135-145) meq/L Potassium 4.2 3.9 3.4 L (3.8-5.2) meq/L Chloride 103 103 102 (98-112) meq/L Carbon Dioxide 18 L 20 L 19 L (23-33) meq/L Anion Gap 8 5 7 (5-20) BUN 14 17 17 (7-22) mg/dL Creatinine 1.1 1.0 1.0 (0.50-1.20) mg/dL Estimated GFR (>60 ml/min/1.73m(2)) BUN/Creatinine Ratio 12.72 17.00 17.00 (6-20) Glucose 83 100 85 (78-110) mg/dL Calculated Osmolality 267.0 267.0 266.0 L (267-292) mOsm/kg Lactic Acid (0.70-2.10) MMOL/L Calcium 7.9 L 8.2 L 8.5 L (8.7-10.7) mg/dL Phosphorus (2.4-4.3) mg/dl Magnesium (1.6-2.4) mg/dL Total Bilirubin 0.3 0.4 0.3 (0.3-1.2) mg/dL Conjugated Bilirubin (0.0-0.3) MG/DL Unconjugated Bilirubin (0.0-1.1) mg/dL AST 69 H 62 H 65 H (8-39) IU/L ALT 70 H 73 H 69 H (9-52) IU/L Alkaline Phosphatase 64 71 68 (38-126) IU/L Total Creatine Kinase (30-136) IU/L Troponin I (< 0.040) ng/mL C-Reactive Protein 15.7 H (0.0-0.9) mg/dL Total Protein 5.2 L 5.4 L 5.2 L (6.1-8.0) g/dL Albumin 2.6 L 2.7 L 2.6 L (3.5-4.8) g/dL Globulin 2.6 2.7 2.6 (2.50-4.10) g/dL Albumin/Globulin Ratio 1.00 L 1.00 L 1.00 L (1.3-2.0) mg/g Amylase 51 (30-110) U/L Lipase 186 (23-300) IU/L Ur Collection Type Urine Color Urine Clarity (CLEAR) Urine pH (5.0-8.5) Ur Specific [place] (1.005-1.030) Urine Protein (NEG) mg/dl Urine Glucose (UA) (NEG) mg/dL Urine Ketones (NEG) Urine Occult Blood (NEG) Urine Nitrate (NEG) Urine Bilirubin (NEG) Urine Urobilinogen (0.2) EU/dL Ur Leukocyte Esterase (NEG) Urine RBC (NONE) /hpf Urine WBC (NONE) Ur Squamous Epith Cells (NONE) Ur Renal Epithelial Cell (NONE) Urine Crystals Urine Bacteria (NONE) Urine Casts (NONE) Urine Mucus (NONE) Urine Trichomonas (NONE) Urine Yeast (NONE) Ur Culture Indicated? Rheumatoid Factor 12.2 H (0.00-11.99) IU/ML Hepatitis A IgM Ab Negative (Negative) Hep Bs Antigen Negative (Negative) Hep B Core IgM Ab Negative (Negative) Hepatitis C Ab Screen Negative (Negative) 04/08/17 Range/Units 03:25 WBC (4.8-10.8) 10^3/uL RBC (4.20-5.40) 10^6/uL Hgb (12.0-16.0) g/dL Hct (37.0-47.0) % MCV (81-99) FL MCH (27-31) PG MCHC (33-37) g/dL RDW Std Deviation (39-50) fL RDW Coeff of Rigoberto (11.5-14.5) % Plt Count (140-350) 10*3/uL MPV (7.4-12.2) FL Immature Gran % (Auto) (0-5) % Neut % (Auto) (50-80) % Lymph % (Auto) (10-50) % [place] % (Auto) (5-15) % Eos % (Auto) (0-8) % Baso % (Auto) (0-1) % Immature Gran # (Auto) 10*3/UL Neut # (Auto) 10*3/UL Lymph # (Auto) 10*3/uL [place] # (Auto) (0.3-0.8) 10*3/UL Eos # (Auto) 10*3/UL Baso # (Auto) 10*3/UL WBC Morphology Comment (NORM) Plt Morphology Comment (NORM) RBC Morph Comment (NORM) Sodium 133 L (135-145) meq/L Potassium 3.6 L (3.8-5.2) meq/L Chloride 106 (98-112) meq/L Carbon Dioxide 19 L (23-33) meq/L Anion Gap 8 (5-20) BUN 14 (7-22) mg/dL Creatinine 0.9 (0.50-1.20) mg/dL Estimated GFR (>60 ml/min/1.73m(2)) BUN/Creatinine Ratio 15.55 (6-20) Glucose 92 (78-110) mg/dL Calculated Osmolality 276.0 (267-292) mOsm/kg Lactic Acid (0.70-2.10) MMOL/L Calcium 8.9 (8.7-10.7) mg/dL Phosphorus (2.4-4.3) mg/dl Magnesium (1.6-2.4) mg/dL Total Bilirubin 0.3 (0.3-1.2) mg/dL Conjugated Bilirubin (0.0-0.3) MG/DL Unconjugated Bilirubin (0.0-1.1) mg/dL AST 49 H (8-39) IU/L ALT 72 H (9-52) IU/L Alkaline Phosphatase 69 (38-126) IU/L Total Creatine Kinase (30-136) IU/L Troponin I (< 0.040) ng/mL C-Reactive Protein (0.0-0.9) mg/dL Total Protein 5.5 L (6.1-8.0) g/dL Albumin 2.7 L (3.5-4.8) g/dL Globulin 2.8 (2.50-4.10) g/dL Albumin/Globulin Ratio 0.90 L (1.3-2.0) mg/g Amylase (30-110) U/L Lipase (23-300) IU/L Ur Collection Type Urine Color Urine Clarity (CLEAR) Urine pH (5.0-8.5) Ur Specific [place] (1.005-1.030) Urine Protein (NEG) mg/dl Urine Glucose (UA) (NEG) mg/dL Urine Ketones (NEG) Urine Occult Blood (NEG) Urine Nitrate (NEG) Urine Bilirubin (NEG) Urine Urobilinogen (0.2) EU/dL Ur Leukocyte Esterase (NEG) Urine RBC (NONE) /hpf Urine WBC (NONE) Ur Squamous Epith Cells (NONE) Ur Renal Epithelial Cell (NONE) Urine Crystals Urine Bacteria (NONE) Urine Casts (NONE) Urine Mucus (NONE) Urine Trichomonas (NONE) Urine Yeast (NONE) Ur Culture Indicated? Rheumatoid Factor (0.00-11.99) IU/ML Hepatitis A IgM Ab (Negative) Hep Bs Antigen (Negative) Hep B Core IgM Ab (Negative) Hepatitis C Ab Screen (Negative) Discharge instruction Diet regular Activity as started Medications Active Medications Acetaminophen (Tylenol) 650 mg PO Q6H PRN PRN Reason: Pain Last Admin: 04/07/17 20:49 Dose: 650 mg Albuterol/Ipratropium (Duoneb Neb Soln) 3 ml NEB RTQID PRN PRN Reason: Shortness of Breath Last Admin: 04/05/17 15:13 Dose: 3 ml Calcium Carbonate (Tums) 2 tab PO Q4H PRN PRN Reason: Indigestion Last Admin: 04/06/17 21:39 Dose: 1 tab Docusate Sodium (Colace) 100 mg PO BID [facility] Last Admin: 04/08/17 08:08 Dose: Not Given Sodium Chloride (Normal Saline 0.9%) 25 mls @ 200 mls/hr IV .Post Infusion PRN PRN Reason: No Primary IV for Flush ONLY Last Admin: 04/06/17 10:07 Dose: 200 mls/hr Ceftriaxone Sodium 2 gm/ (Sodium Chloride) 100 mls @ 200 mls/hr IV Q24H [facility] Last Admin: 04/07/17 11:29 Dose: 200 mls/hr Lidocaine HCl (Lidocaine Buffered Inj) 0.5 ml SUBD ONCE PRN PRN Reason: IV Starts Ondansetron HCl (Zofran Inj) 4 mg IVP Q4H PRN PRN Reason: NAUSEA / VOMITING Last Admin: 04/03/17 21:33 Dose: 4 mg Oxycodone/Acetaminophen (Percocet 5/325 Tab) 1 tab PO BID PRN PRN Reason: Pain Last Admin: 04/04/17 05:09 Dose: 1 tab Pantoprazole Sodium (Protonix) 40 mg PO AC BK [facility] Last Admin: 04/08/17 07:06 Dose: 40 mg Potassium Chloride (Klor-Con) 10 meq PO DAILY [facility] Last Admin: 04/08/17 08:05 Dose: 10 meq Pravastatin Sodium (Pravachol) 40 mg PO BEDTIME [facility] Last Admin: 04/07/17 20:49 Dose: 40 mg Rivaroxaban (Xarelto) 20 mg PO DAILY [facility] Last Admin: 04/08/17 08:06 Dose: 20 mg Senna (Senokot) 8.6 mg PO DAILY PRN PRN Reason: Constipation Last Admin: 04/05/17 17:33 Dose: 8.6 mg Sodium Chloride (Saline Flush) 5 - 20 ml IVP BID PRN PRN Reason: Flush Last Admin: 04/07/17 11:29 Dose: 10 ml Spironolactone (Aldactone) 50 mg PO DAILY [facility] Last Admin: 04/08/17 08:05 Dose: 50 mg Follow-up With Dr. Barnhart in 2 weeks and with PCP in next week Condition at discharge was stable for discharge Exam - Vitals Vital Signs: Vital Signs Temperature 97.4 F Temperature Source Temporal Artery Scan Pulse Rate [Pulse Oximeter] 64 Respiratory Rate 20 Blood Pressure [Left Arm] 98/50 Pulse Ox 3 Oxygen Flow Rate 3 Oxygen Delivery Method Nasal Cannula Height 5 ft 4 in Weight 149 lb 6.4 oz Patient Problems - Patient Problem List (1) Fever Current Visit: Yes Status: Acute (2) DVT prophylaxis Current Visit: No Status: Acute (3) Pleural effusion Current Visit: No Status: Acute (4) Hyponatremia Current Visit: Yes Status: Acute (5) Cholelithiasis Current Visit: Yes Status: Acute Diagnosis Date: 04/04/17 Priority: Medium Qualifiers: Cholelithiasis location: gallbladder Cholecystitis presence: without cholecystitis Biliary obstruction: without biliary obstruction Qualified Description: Calculus of gallbladder without cholecystitis without obstruction Qualifier Code(s): (K80.20) Calculus of gallbladder without cholecystitis without obstruction
[2017-04-08 08:45] VITALS: TEMP 97.6
[2017-04-08] MEDS: cefTRIAXone Inj 2 GM in Sodium Chloride 0.9% 100 ML IV SCH (10:03)
== END 2017-04-08 11:11 | disposition home or self-care (01) | DRG 202 ==
LOC: ER 10:52 → MED/SURG 13:24 → OBSVTOIN 04-05 12:21
PROVIDERS: ADMIT Internal Medicine; ATTEND Internal Medicine
DX: J40 Bronchitis, not specified as acute or chronic (principal); J90 Pleural effusion, not elsewhere classified; J98.11 Atelectasis; E87.1 Hypo-osmolality and hyponatremia; R50.9 Fever, unspecified; K80.20 Calculus of gallbladder without cholecystitis without obstruction; R94.5 Abnormal results of liver function studies; Z86.711 Personal history of pulmonary embolism
CPT/HCPCS: 36415 ×2; 70470; 71275; 74176; 76705; 80053; 80069; 80076; 81001; 81003; 82150 ×2; 82550; 83605 ×2; 83690 ×2; 83735; 84484; 85025 ×2; 86140 ×2; 94150; 94761; 96361; 96374; 99284 ×2; J0456; J0696; J1335; J1885; J2405; 71020; 86431; 86705; 86709; 86803; 87040; 87340; 94640; J7030; J7050; J7620

== ENCOUNTER → 2017-04-03 | Outpatient (CLI) | payer OTHER, BC ==
[2017-04-03 10:09] LABS: BASOPHILS # (AUTO) 0.08 10*3/UL; BASOPHILS % (AUTO) 0.9 % (0-1); EOSINOPHILS # (AUTO) 0 10*3/UL; EOSINOPHILS % (AUTO) 0 % (0-8); HEMATOCRIT 41.9 % (37.0-47.0); LYMPHOCYTES # (AUTO) 0.97 10*3/uL; MEAN CORPUSCULAR HEMOGLOBIN 31.6 PG (27-31); MEAN CORPUSCULAR HGB CONC 35.8 g/dL (33-37); MEAN CORPUSCULAR VOLUME 88.2 FL (81-99); MEAN PLATELET VOLUME 9.3 FL (7.4-12.2); MONOCYTES # (AUTO) 0.79 10*3/UL (0.3-0.8); MONOCYTES % (AUTO) 9.4 % (5-15); NEUTROPHILS # (AUTO) 6.57 10*3/UL; RED BLOOD COUNT 4.75 10^6/uL (4.20-5.40)
[2017-04-03 10:10] LABS: PLATELET MORPHOLOGY COMMENT NORMAL MORPHOLOGY (NORM); RBC MORPHOLOGY COMMENT NORMAL MORPHOLOGY (NORM); WBC MORPHOLOGY COMMENT NORMAL MORPHOLOGY (NORM)
[2017-04-03 10:23] LABS: BUN/CREATININE RATIO 18.33 (6-20); CALCIUM 9.9 mg/dL (8.7-10.7); SERUM ALBUMIN 4.3 g/dL (3.5-4.8)
== END ==
LOC: MOB LAB 09:31
PROVIDERS: ATTEND Physician Assistant Medical
DX: R50.9 Fever, unspecified (principal); R07.89 Other chest pain; R53.81 Other malaise; R05 Cough; R06.00 Dyspnea, unspecified
CPT/HCPCS: 36415; 80053; 85025; 85379; 99213; G0463

== ENCOUNTER 2017-09-22 19:09 | Observation (INO) ==
[2017-09-22] MEDS ORDERED: Sodium Chloride 0.9% 1,000 ML PRIMARY IV ONE (19:38)
[2017-09-22] MEDS ORDERED: ONDANSETRON 4 MG/2 ML VIAL IVP ONE (19:38)
--- NOTE | 2017-09-22 19:40 | PDOC ---
Lower Extremity Injury HPI - General Chief Complaint: Lower Extremity Problem/Injury Stated Complaint: right knee pain Date Seen by Provider: 09/22/17 Time Seen by Provider: 19:36 Source: POSITIVE: Patient Exam Limitations: POSITIVE: No limitations Nurse's Notes Reviewed & Considered: Yes - History of Present Illness Initial Comments: This is a very pleasant, female, well-developed, 77-year-old female complaining of right knee pain. Patient with onset of right knee pain on Wednesday that has been intermittent and now is worse. She has heat present in her knee, decreased range of motion, and increased pain. She denies any headache, no sore throat, no chest pain or shortness of breath, no cough, no nausea vomiting or diarrhea, no abdominal pain, no fever chills or sweats, no hematuria or dysuria. Have you received a tetanus shot in the past 10 years?: Yes - Patient Home Medications Home Medications: Home Medications Multivitamin [Multivitamins] 1 ea PO DAILY 06/10/12 Ibuprofen/Diphenhydramine [Advil Pm Caplet] 1 tab PO PRN tab 10/23/15 Estradiol Vaginal Cream 0.01% [Estrace Vaginal Cream 0.01%] 1 applic VAGINAL 2XW #1 tube 02/24/16 Calcium Carbonate/Vitamin D3 [Calcium 600-Vit D3 200 Tablet] 1 tab PO BID tab 04/14/17 folic acid 1 mg tablet 1 mg PO QID #120 tab 07/14/17 potassium chloride ER 10 mEq tablet,extended release 10 meq PO QD #90 tab rivaroxaban 20 mg tablet 20 mg PO DAILY #90 tab 07/14/17 spironolactone 50 mg tablet 50 mg PO DAILY #90 tab 08/27/17 pravastatin 40 mg tablet 40 mg PO DAILY #90 tab 09/08/17 zolpidem 10 mg tablet 10 mg PO QHS #30 tab-cap 09/08/17 - Patient Allergies Allergies/Adverse Reactions: Allergies 3 Allergy/AdvReac Type Severity Reaction Status Date / Time atorvastatin calcium Allergy Intermediate HIGH Verified 09/22/17 19:11 [From Lipitor] ANXIETY pseudoephedrine HCl Allergy Intermediate TACHYCARDIA Verified 09/22/17 19:11 [From Sudafed] vancomycin AdvReac Severe ITCHING Verified 09/22/17 19:11 alendronate sodium AdvReac Intermediate muscle Verified 09/22/17 19:11 [From LIKECHARITY] joint and pain Past Medical History - heen HEENT History: Cataracts, Dentures/Partials, Other (please comment) Additional HEENT History: upper dentures. 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 WEARS GLASSES Cardiovascular History: Angina, CAD, DVTs, Hyperlipidemia Respiratory History: Shortness of Breath, Pneumonia, Pulmonary Embolism Additional Respiratory History: last PE 2014. pleural effusion. acute bronchitis in march 2017 Gastrointestinal History: Gallbladder Disease, Other (please comment) Additional Gastrointestinal History: cholectomy - 2016 Genitourinary History: Denies History Endocrine History: Denies History Musculoskeletal History: Arthritis, Osteoporosis Prosthesis or Implant: Yes (TITANIUM MESH/BRAIN, RIGHT KNEE REPLACEMENT HARDWARE ) Additional Musculoskeletal History: Ankle pain Neurological History: Denies History Blood Disorders: Denies History Psychiatric History: Anxiety Disorders History of Sexually Transmitted Diseases: No Cancer History: Denies History In Past Year Been Physically Harmed or Verbally Threatened: No History of MDRO: Unknown Other Type of MDRO: POSSIBLE HISTORY OF MRSA History of Other Communicable Diseases: No Tobacco Use: Never Smoker Alcohol Use: None In the Past 12 Months, Have Used or Abuse Any Substance: None Previous Surgical History: Yes Type / Date of Surgery: PARTIAL HYST/ T&A/ BRAIN TUMOR/ ACOUSTIC NEUROMA REMOVED 2008/ CYSTOCELE AND RECTOCELE/ 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/ EXP LAP, with the hyst LEFT OOPHERECTOMY, BILATERAL CATARACT REMOVAL, RIGHT TOTAL KNEE REPLACEMENT Anesthesia Reactions: No Malignant Hyperthermia: No Significant Family History: Heart disease ROS - Limitations ROS Limitations: No Limitations Constitution: REPORTS: Denies Symptoms Cardiovascular: REPORTS: Denies Cardiac Symptoms Respiratory: REPORTS: Denies Resp Symptoms Neurological: REPORTS: Denies Neuro Symptoms Gastrointestinal: REPORTS: Denies GI Symptoms Endocrine: REPORTS: Denies Symptoms Musculoskeletal: REPORTS: Joint Pain (Right knee pain) Genitourinary: REPORTS: Denies Symptoms Eyes: REPORTS: Denies Symptoms ENT: REPORTS: Denies Symptoms Skin: REPORTS: Denies Skin Symptoms Lympathic: REPORTS: Denies Lympathic Symptoms Immunologic: POSITIVE: Denies Symptoms Psychiatric: POSITIVE: Denies Psych Symptoms Lower Ext Complaint Exam - General Appearance General Appearance: POSITIVE: Alert, Cooperative, No Acute Distress, No Evidence of Trauma - Extremities Lower Extremity: POSITIVE: Normal Inspection, Normal Color, Skin Intact, Soft Tissue Tenderness (Soft tissue tenderness in the popliteal fossa extending proximally about 6 cm.), Swelling (Swelling in the popliteal fossa), Ecchymosis (Bruising over the lateral knee on the right knee.), Other (Good pulses present distally by palpation.) Lower Extremity Ligament: NEGATIVE: Pain on Anterior Drawer, Pain on Posterior Drawer, Laxity on Anterior Drawer, Laxity w/Posterior Drawer, Pain on Medial Stress, Pain on Lateral Stress, Laxity on Medial Stress, Laxity on Lateral Stress, Other Gait: POSITIVE: Limited by Pain Neurovascular/Tendon: POSITIVE: Sensation Normal, Motor Normal, No Vascular Compromise Skin: POSITIVE: Warm, Dry - HEENT HEENT: POSITIVE: Head Inspection Nml, Eyes Inspection Nml, Ears Inspection Nml, Nose Inspection Nml, Oral/Dental Inspect. Nml, Pharynx Inspect. Nml, PERRL, EOMI - Neck / Back Neck/Back: POSITIVE: Normal Inspection, Non-Tender, Painless ROM - Respiratory / CVS Respiratory / CVS: POSITIVE: Chest Non Tender, No Ecchymosis, Breath Sounds Normal, No Respiratory Distress, Heart Sounds Normal, Regular Rate/Rhythm Peripheral Pulses: Popliteal (R): 4+, Dorsalis-pedis (R): 4+ - Abdomen Abdomen: Soft: (All Quadrants), Normal Bowel Sounds: (All Quadrants), Denies Tenderness: (All Quadrants), No Splenomegaly: (All Quadrants), No Hepatomegaly: (All Quadrants), No Guarding: (All Quadrants), No Rebound: (All Quadrants), No Palpable Pulse: (All Quadrants), No Palpabale Mass: (All Quadrants), No Distention: (All Quadrants), No Rigidity: (All Quadrants) Procedures - Laceration/Wound Repair Did patient have a laceration repair: No Lower Ext Complaint Progress - Results Reviewed by me Xrays/CTs/US Reviewed by me: Yes Discussed with Radiologist: Yes Lab Results Reviewed by Me: Yes CBC and BMP: 09/22/17 19:45 09/22/17 19:45 - Patient's Progress Pain Medication Addressed: POSITIVE: Yes Status: POSITIVE: Improved MDM / ED Course: Patient was evaluated, an IV started, blood drawn and sent to the lab for studies, radiographic examinations were obtained. Findings: Ultrasound shows no DVT present. X-ray of her knee shows a moderate joint effusion present. CBC shows white count of 13. CMP is unremarkable. INR is 1.14. Assessment: Hemarthrosis Plan: Admission. - Consult Consult (If Yes, Name of Consulting MD & Time Called): Yes (Dr. Zheng) Consulting MD will see pt:: POSITIVE: [facility] – [place] Admit Counseled: POSITIVE: Patient, Family, RE: Lab Results, RE: Radiology Results, RE : DX Patient Care Time - Estimated PCT Patient Care Time (In Minutes): 30 Vital Signs - VS Reviewed Vital Signs Reviewed: Yes Discharge Clinical Impression: Hemarthrosis Discharge Disposition: Admit to Inpatient Condition: Stable Patient Instructions Given at Discharge: Hemarthrosis (ED) Follow Up With: FIONA JOHN [Primary Care Provider] - Date Decision to Admit to Inpatient: 09/22/17 Time Decision to Admit to Inpatient: 21:52
[2017-09-22] MEDS ORDERED: KETOROLAC 15 MG/1 ML VIAL IVP ONE (19:55)
[2017-09-22 19:56] LABS: BASOPHILS # (AUTO) 0.05 10*3/UL; BASOPHILS % (AUTO) 0.4 % (0-1); EOSINOPHILS # (AUTO) 0.08 10*3/UL; EOSINOPHILS % (AUTO) 0.6 % (0-8); Hematocrit [HCT] 40.6 % (37.0-47.0); Hemoglobin [HGB] 13.8 g/dL (12.0-16.0); LYMPHOCYTES # (AUTO) 3.58 10*3/uL; MEAN CORPUSCULAR HEMOGLOBIN 30.9 PG (27-31); MEAN PLATELET VOLUME 8.9 FL (7.4-12.2); MONOCYTES # (AUTO) 1.36 10*3/UL (0.3-0.8); MONOCYTES % (AUTO) 10.4 % (5-15); NEUTROPHILS # (AUTO) 8.01 10*3/UL; NEUTROPHILS % (AUTO) 60.9 % (50-80); RED BLOOD COUNT 4.46 10^6/uL (4.20-5.40)
[2017-09-22] MEDS ORDERED: KETOROLAC 15 MG/1 ML VIAL ONE (19:56)
[2017-09-22 19:59] LABS: PLATELET MORPHOLOGY COMMENT NORMAL MORPHOLOGY (NORM); RBC MORPHOLOGY COMMENT NORMAL MORPHOLOGY (NORM); WBC MORPHOLOGY COMMENT NORMAL MORPHOLOGY (NORM)
[2017-09-22 20:08] LABS: BLOOD UREA NITROGEN 24 mg/dL (7-22); BUN/CREATININE RATIO 21.81 (6-20); SERUM ALBUMIN 4.7 g/dL (3.5-4.8); Uric Acid 5.9 mg/dl (2.5-7.5)
[2017-09-22 20:19] LABS: VENOUS PH 7.45 (7.32-7.42)
--- NOTE | 2017-09-22 21:04 | DI ---
EXAM: US Duplex Right Lower Extremity Veins CLINICAL HISTORY: Physician Notes: Tech Comments: TECHNIQUE: Real-time ultrasound scan of the veins of the right lower extremity with color Doppler flow, spectral waveform analysis and compression. COMPARISON: No relevant prior studies available. FINDINGS: Deep veins: Unremarkable. No DVT in the visualized common femoral, femoral, proximal deep femoral or popliteal veins. The veins demonstrate normal color flow, are normally compressible, with normal phasic flow and/or augmentation response. Superficial veins: Unremarkable. No thrombus in the visualized great saphenous vein. Soft tissues: No acute findings. No popliteal cyst. IMPRESSION: Normal right lower extremity duplex venous ultrasound.
[2017-09-22] MEDS ORDERED: HYDROcodone-APAP 5 MG -325 MG TABLET PO ONE ×2 (21:21→21:23)
[2017-09-22] MEDS ORDERED: ONDANSETRON 4 MG/2 ML VIAL IVP PRN (22:43)
[2017-09-22] MEDS ORDERED: CALCIUM CARBONATE 500 MG (TUMS) CHEWABLE TABLET PO PRN (22:43)
[2017-09-22] MEDS ORDERED: ACETAMINOPHEN 325 MG TABLET PO PRN (22:43)
[2017-09-22] MEDS ORDERED: NORMAL SALINE 10 ML SYRINGE FLUSH IVP PRN (22:43)
[2017-09-22] MEDS ORDERED: LIDOCAINE W/ SODIUM BICARB 0.5 ML SYR SUBD PRN (22:43)
[2017-09-22] MEDS ORDERED: DOCUSATE 100 MG CAPSULE PO PRN (22:43)
--- NOTE | 2017-09-22 23:45 | PDOC ---
HPI - History of Present Illness Date of Service: 09/22/17 Time of Service: 23:45 Chief Complaint: Right knee pain History of Present Illness: This very pleasant 77-year-old female who had a right knee replacement done about 3 years ago. She stated it was a complicated right knee replacement that resulted in some right foot drop that required recurrent surgery to improve. Patient recovered from that. She has had a significant history of pulmonary emboli, including at least 3 events over her lifetime, 1 associated with an injury which resulted in a splenectomy as well. She also has had an echo history of neuroma removed. Difficult decisions regarding anticoagulation for unprovoked pulmonary emboli and increased risk of recurrent DVT/pulmonary emboli were discussed with the patient in consultation with hematology and oncology and it was determined that it would be best to have the patient remain on lifelong anticoagulation. The patient chose Xarelto for this over Coumadin and recently had a medication switch to Eliquis. She did not tolerate that and switch back to Xarelto. She is been dosed at 20 mg by mouth daily for the prevention of recurrent pulmonary emboli and DVT. About 3 days ago the patient noticed she was having some more knee pain. She had significant swelling in her right knee and it's become tender to the point where she was not able to walk very well. She denied any fevers, chills, nausea or vomiting, or any other systemic symptoms. She came in for evaluation and was found to have right joint effusion. I was asked by the emergency room physician to evaluate. We also discussed with orthopedic physician and found that there was an effusion present on x-ray and a right upper extremity ultrasound was done and was negative for DVT. Patient states that Toradol helped her pain. She had been taking Advil intermittently at home. Hydrocodone also help the pain significantly here tonight. However, when we attempt to tabulate the patient, her pain persisted and worsened. She cannot tolerate weight on her knee. She does not have any surrounding erythema and there is no break in the skin. Her white blood cell count was mildly elevated, but overall, infection was lower on the differential then hemarthrosis. She's never had anything like this happen before. She does state that she noticed some popping-like sensations with some twisting motions prior to the onset of right knee pain. Past Medical History Medical History: 1. Hypertension. 2. Hypercholesterolemia. 3. 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 4. 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 5. history of pulmonary embolism. This happened at least twice. Last one unprovoked. 6. history of pneumonia Surgical History: 1. Splenectomy after an accident. 2. Acoustic neuroma surgery about 5 years ago. 3. Cataract extraction. 4. Hysterectomy with unilateral oophorectomy. 5. Tonsillectomy and adenoidectomy. 6. Cholecystectomy Pertinent Family History: History of coronary artery disease in her father. Past Social History: Does not smoke or drink alcohol. Lives alone here, but has a significant other. Has 2 sons, but they suffer from some medical issues with their backs. And bone issues. Tobacco Use: Never Smoker In the Past 12 Months, Have Used or Abuse Any of the Following Substance: None Alcohol Use: None Medication / Allergies Home Medications: Home Medications 3 Medication Instructions Recorded Confirmed Type Multivitamin [Multivitamins] 1 ea PO DAILY 06/10/12 09/22/17 History Ibuprofen/Diphenhydramine [Advil 1 tab PO PRN tab 10/23/15 09/22/17 History Pm Caplet] Estradiol Vaginal Cream 0.01% 1 applic VAGINAL 2XW #1 tube 02/24/16 09/22/17 History [Estrace Vaginal Cream 0.01%] Calcium Carbonate/Vitamin D3 1 tab PO BID tab 04/14/17 09/22/17 History [Calcium 600-Vit D3 200 Tablet] folic acid 1 mg tablet 1 mg PO QID #120 tab 07/14/17 09/22/17 History potassium chloride ER 10 mEq 10 meq PO QD #90 tab 07/14/17 09/22/17 Rx tablet,extended release rivaroxaban 20 mg tablet 20 mg PO DAILY #90 tab 07/14/17 09/22/17 Rx spironolactone 50 mg tablet 50 mg PO DAILY #90 tab 08/27/17 09/22/17 Rx pravastatin 40 mg tablet 40 mg PO DAILY #90 tab 09/08/17 09/22/17 Rx zolpidem 10 mg tablet 10 mg PO QHS #30 tab-cap 09/08/17 09/22/17 Rx Allergies/Adverse Reactions: Allergies 3 Allergy/AdvReac Type Severity Reaction Status Date / Time atorvastatin calcium Allergy Intermediate HIGH Verified 09/22/17 19:11 [From Lipitor] ANXIETY pseudoephedrine HCl Allergy Intermediate TACHYCARDIA Verified 09/22/17 19:11 [From Sudafed] vancomycin AdvReac Severe ITCHING Verified 09/22/17 19:11 alendronate sodium AdvReac Intermediate muscle Verified 09/22/17 19:11 [From Fosamax] joint and pain Review of Systems - Review of Systems All Systems: Reviewed & No Additional Complaints Except as Stated (I did a 12 point review systems was negative other than that discussed in history present illness.) Exam - Vitals Vital Signs: Vital Signs Height 5 ft 4 in Weight 135 lb Vital Signs - Last Taken Temperature 98.1 F 09/22/17 22:20 Pulse Rate 88 09/22/17 22:44 Respiratory Rate 20 09/22/17 22:44 Blood Pressure 154/69 09/22/17 22:20 Pulse Ox 77 09/22/17 22:20 - General General Appearance: No Acute Distress, Cooperative - Head Head Exam: Normal Inspection, Normocephalic, Laceration(s) - Eye Eye Exam: POSITIVE: No Scleral Icterus - ENT ENT Exam: POSITIVE: Mucous Membranes Moist - Neck Neck Exam: Normal Inspection, No Tenderness, No Lymphadenopathy, No Thyromegaly - Respiratory Respiratory Exam: POSITIVE: Clear to Auscultation - Bilaterally, Breathing Non Labored, Normal to Percussion and Palpation - Cardiovascular Cardiovascular Exam: POSITIVE: RRR, No Murmur, No Clicks, No Gallops, No Rubs, No JVD - GI/Abdominal GI/Abdominal Exam: POSITIVE: Normal Bowel Sounds, Non Tender, Non Distended, Soft - Rectal Rectal Exam: POSITIVE: Deferred - External Exam: POSITIVE: Deferred Exam: POSITIVE: Deferred - Extremities Extremities Exam: POSITIVE: No Clubbing Present, No Edema Present, No Cyanosis Present, Joint Swelling (Right knee, not erythematous, not exquisitely warm to touch.) Additional Extremities Exam Details: I did not palpate a Bush's cyst. - Back Back Exam: POSITIVE: Normal Inspection, No CVA Tenderness - Neurological Neurological Exam: POSITIVE: Alert, Oriented x 3, No Facial Droop, Speech Intact / Clear, Moves All Extremities Equally - Psychiatric Psychiatric Exam: POSITIVE: Normal Affect, Normal Mood - Integumentary Integumentary Exam: POSITIVE: Normal Color, Warm, Dry, Intact Results - Labs CBC and BMP: 09/22/17 19:45 09/22/17 19:45 Additional Lab Results: Laboratory Results 09/22/17 09/22/17 09/22/17 Range/Units 18:55 19:45 19:45 WBC 13.13 H (4.8-10.8) 10^3/uL RBC 4.46 (4.20-5.40) 10^6/uL Hgb 13.8 (12.0-16.0) g/dL Hct 40.6 (37.0-47.0) % MCV 91.0 (81-99) FL MCH 30.9 (27-31) PG MCHC 34.0 (33-37) g/dL RDW Std Deviation 46.5 (39-50) fL RDW Coeff of Rigoberto 14.2 (11.5-14.5) % Plt Count 348 (140-350) 10*3/uL MPV 8.9 (7.4-12.2) FL Immature Gran % (Auto) 0.4 (0-5) % Neut % (Auto) 60.9 (50-80) % Lymph % (Auto) 27.3 (10-50) % [place] % (Auto) 10.4 (5-15) % Eos % (Auto) 0.6 (0-8) % Baso % (Auto) 0.4 (0-1) % Immature Gran # (Auto) 0.05 10*3/UL Neut # (Auto) 8.01 10*3/UL Lymph # (Auto) 3.58 10*3/uL [place] # (Auto) 1.36 H (0.3-0.8) 10*3/UL Eos # (Auto) 0.08 10*3/UL Baso # (Auto) 0.05 10*3/UL WBC Morphology Comment Normal morphology (NORM) Plt Morphology Comment Normal morphology (NORM) RBC Morph Comment Normal morphology (NORM) PT 12.1 H (9.7-11.4) secs INR 1.14 (0.00-5.90) N/A VBG pH (7.32-7.42) VBG pCO2 (45-55) mmHg VBG HCO3 (22-26) mmol/L VBG Base Excess (-2-2) MMOL/L Sodium 136 (135-145) meq/L Potassium 4.3 (3.8-5.2) meq/L Chloride 98 (98-112) meq/L Carbon Dioxide 23 (23-33) meq/L Anion Gap 15 (5-20) BUN 24 H (7-22) mg/dL Creatinine 1.1 (0.50-1.20) mg/dL BUN/Creatinine Ratio 21.81 H (6-20) Glucose 102 (78-110) mg/dL Calculated Osmolality 285.0 (267-292) mOsm/kg Lactic Acid (0.70-2.10) MMOL/L Uric Acid 5.9 (2.5-7.5) mg/dl Calcium 10.3 (8.7-10.7) mg/dL Magnesium 2.1 (1.6-2.4) mg/dL Total Bilirubin 0.5 (0.3-1.2) mg/dL AST 27 (8-39) IU/L ALT 31 (9-52) IU/L Alkaline Phosphatase 68 (38-126) IU/L C-Reactive Protein 2.3 H (0.0-0.9) mg/dL Total Protein 8.0 (6.1-8.0) g/dL Albumin 4.7 (3.5-4.8) g/dL Globulin 3.3 (2.50-4.10) g/dL Albumin/Globulin Ratio 1.40 (1.3-2.0) mg/g 09/22/17 09/22/17 Range/Units 19:45 20:08 WBC (4.8-10.8) 10^3/uL RBC (4.20-5.40) 10^6/uL Hgb (12.0-16.0) g/dL Hct (37.0-47.0) % MCV (81-99) FL MCH (27-31) PG MCHC (33-37) g/dL RDW Std Deviation (39-50) fL RDW Coeff of Rigoberto (11.5-14.5) % Plt Count (140-350) 10*3/uL MPV (7.4-12.2) FL Immature Gran % (Auto) (0-5) % Neut % (Auto) (50-80) % Lymph % (Auto) (10-50) % [place] % (Auto) (5-15) % Eos % (Auto) (0-8) % Baso % (Auto) (0-1) % Immature Gran # (Auto) 10*3/UL Neut # (Auto) 10*3/UL Lymph # (Auto) 10*3/uL [place] # (Auto) (0.3-0.8) 10*3/UL Eos # (Auto) 10*3/UL Baso # (Auto) 10*3/UL WBC Morphology Comment (NORM) Plt Morphology Comment (NORM) RBC Morph Comment (NORM) PT (9.7-11.4) secs INR (0.00-5.90) N/A VBG pH 7.45 H (7.32-7.42) VBG pCO2 40 L (45-55) mmHg VBG HCO3 28 H (22-26) mmol/L VBG Base Excess 4 H (-2-2) MMOL/L Sodium (135-145) meq/L Potassium (3.8-5.2) meq/L Chloride (98-112) meq/L Carbon Dioxide (23-33) meq/L Anion Gap (5-20) BUN (7-22) mg/dL Creatinine (0.50-1.20) mg/dL BUN/Creatinine Ratio (6-20) Glucose (78-110) mg/dL Calculated Osmolality (267-292) mOsm/kg Lactic Acid 1.4 (0.70-2.10) MMOL/L Uric Acid (2.5-7.5) mg/dl Calcium (8.7-10.7) mg/dL Magnesium (1.6-2.4) mg/dL Total Bilirubin (0.3-1.2) mg/dL AST (8-39) IU/L ALT (9-52) IU/L Alkaline Phosphatase (38-126) IU/L C-Reactive Protein (0.0-0.9) mg/dL Total Protein (6.1-8.0) g/dL Albumin (3.5-4.8) g/dL Globulin (2.50-4.10) g/dL Albumin/Globulin Ratio (1.3-2.0) mg/g - Imaging Status: Image Reviewed by Me (I looked at the x-ray, there does not appear to be any fractures. This was of the knee. Ultrasound study was read as negative for DVT.) Assessment and Plan - Patient Problems (1) Hemarthrosis, right knee Current Visit: Yes Status: Acute Code(s): M25.061 - Hemarthrosis, right knee (2) Anticoagulant causing adverse effect in therapeutic use Current Visit: Yes Status: Acute Code(s): T45.515A - Adverse effect of anticoagulants, initial encounter Qualifiers: Encounter type: initial encounter Qualified Code(s): T45.515A - Adverse effect of anticoagulants, initial encounter (3) Benign hypertension Current Visit: Yes Status: Chronic (4) Hyperlipidemia Current Visit: No Status: Chronic Qualifiers: Hyperlipidemia type: unspecified Qualified Code(s): E78.5 - Hyperlipidemia , unspecified (5) Hx pulmonary embolism Current Visit: Yes Status: Chronic Onset Date: 10/23/15 Code(s): Z86.711 - Personal history of pulmonary embolism - Assessment / Plan Additional Assessment/Plan Details: We tried conservative therapy with pain management for the hemarthrosis, including ice packs, with intention of considering outpatient follow-up with orthopedics, but the patient had too much pain upon ambulation attempt, and a "road test", and as the patient has significant pain, continued swelling, we will admit her for observation, her PT and OT, continue medications for pain control, and have orthopedics see tomorrow. I'm going to hold Xarelto for now. I reviewed the literature extensively, and recently in October 2016, a [employer] report showed that extended therapy with Xarelto can be dose. Over 1 year on average of treatment duration in that study, patients had reduced venous thromboembolism events with reduction in bleeding versus therapeutic dose. Given this I would feel comfortable at reducing the patient's Xarelto to 10 mg by mouth daily indefinitely and she does wish to continue on anticoagulant therapy to prevent any further pulmonary emboli. I advised that we should stop anti-inflammatories and not use them at all for pain. They should be avoided at all costs in the setting of Xarelto therapy. Unfortunately, the patient states that Tylenol does not work for her arthritic pains. We may need to develop other strategies for pain management in the setting of her osteoarthritis. If possible it would be nice to be able to eliminate estrogen to reduce the patient's risk of DVT/PE due to estrogen exposure. I don't know if this will be possible however. Continue home medications otherwise. Plan above was discussed with patient, her significant other and his son in detail and patient's questions were answered in detail. She agrees with the plan. She told me DO NOT RESUSCITATE in terms of her CODE STATUS.
[2017-09-23] MEDS: HYDROcodone-APAP 5 MG -325 MG TABLET PO PRN ×2 (03:22→09:54)
[2017-09-23 05:39] LABS: BASOPHILS # (AUTO) 0.06 10*3/UL; BASOPHILS % (AUTO) 0.6 % (0-1); EOSINOPHILS # (AUTO) 0.11 10*3/UL; EOSINOPHILS % (AUTO) 1.1 % (0-8); Hematocrit [HCT] 34.2 % (37.0-47.0); Hemoglobin [HGB] 11.3 g/dL (12.0-16.0); LYMPHOCYTES # (AUTO) 2.22 10*3/uL; MEAN CORPUSCULAR HEMOGLOBIN 30.5 PG (27-31); MEAN CORPUSCULAR VOLUME 92.4 FL (81-99); MEAN PLATELET VOLUME 8.9 FL (7.4-12.2); MONOCYTES # (AUTO) 1.35 10*3/UL (0.3-0.8); MONOCYTES % (AUTO) 13.1 % (5-15); NEUTROPHILS # (AUTO) 6.53 10*3/UL; NEUTROPHILS % (AUTO) 63.4 % (50-80)
[2017-09-23 05:42] LABS: PLATELET MORPHOLOGY COMMENT NORMAL MORPHOLOGY (NORM); RBC MORPHOLOGY COMMENT NORMAL MORPHOLOGY (NORM); WBC MORPHOLOGY COMMENT NORMAL MORPHOLOGY (NORM)
--- NOTE | 2017-09-23 08:58 | CONSULT ---
Consult Note - Consult Consult Date: 09/23/17 Reason for Consult: Orthopedic Consult Requesting Physician: Dr. Esteban Kim Primary Care Provider: Ana Larsen MD - History of Present Illness History of Present Illness: Patient is a 77-year-old female who is admitted to the hospital last night because of marked increasing swelling pain and discomfort in the right knee that developed over a 3 day period of time. Patient has a total knee on that side done in 2013 and has had no major problems with this other then postoperatively she had a peroneal nerve palsy that resolved over a period of a couple months. She notes that the ankle has never felt normal since that time she feels like the ankle is normal though does not complain of any numbness or tingling and just says it doesn't feel normal. Patient notes no active issues with the ankle at the current time. Patient does note that she's had several episodes in the past where when she turns she'll get a little tweak of pain in the right knee and she just remembers.to turn that way. She notes that prior to coming in and developing the swelling and discomfort in the leg she had a similar episode just prior to the onset of her discomfort. She has had no fevers chills or night sweats. Patient is anticoagulated. Past Medical History Medical History: 1. Hypertension. 2. Hypercholesterolemia. 3. 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 4. 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 5. history of pulmonary embolism. This happened at least twice. Last one unprovoked. 6. history of pneumonia Surgical History: 1. Splenectomy after an accident. 2. Acoustic neuroma surgery about 5 years ago. 3. Cataract extraction. 4. Hysterectomy with unilateral oophorectomy. 5. Tonsillectomy and adenoidectomy. 6. Cholecystectomy Pertinent Family History: History of coronary artery disease in her father. Past Social History: Does not smoke or drink alcohol. Lives alone here, but has a significant other. Has 2 sons, but they suffer from some medical issues with their backs. And bone issues. Tobacco Use: Never Smoker In the Past 12 Months, Have Used or Abuse Any of the Following Substance: None Alcohol Use: None Medication / Allergies Home Medications: Home Medications 3 Medication Instructions Recorded Confirmed Type Multivitamin [Multivitamins] 1 ea PO DAILY 06/10/12 09/22/17 History Ibuprofen/Diphenhydramine [Advil 1 tab PO PRN tab 10/23/15 09/22/17 History Pm Caplet] Estradiol Vaginal Cream 0.01% 1 applic VAGINAL 2XW #1 tube 02/24/16 09/22/17 History [Estrace Vaginal Cream 0.01%] Calcium Carbonate/Vitamin D3 1 tab PO BID tab 04/14/17 09/22/17 History [Calcium 600-Vit D3 200 Tablet] folic acid 1 mg tablet 1 mg PO QID #120 tab 07/14/17 09/22/17 History potassium chloride ER 10 mEq 10 meq PO QD #90 tab 07/14/17 09/22/17 Rx tablet,extended release rivaroxaban 20 mg tablet 20 mg PO DAILY #90 tab 07/14/17 09/22/17 Rx spironolactone 50 mg tablet 50 mg PO DAILY #90 tab 08/27/17 09/22/17 Rx pravastatin 40 mg tablet 40 mg PO DAILY #90 tab 09/08/17 09/22/17 Rx zolpidem 10 mg tablet 10 mg PO QHS #30 tab-cap 09/08/17 09/22/17 Rx Allergies/Adverse Reactions: Allergies 3 Allergy/AdvReac Type Severity Reaction Status Date / Time atorvastatin calcium Allergy Intermediate HIGH Verified 09/23/17 06:37 [From Lipitor] ANXIETY pseudoephedrine HCl Allergy Intermediate TACHYCARDIA Verified 09/23/17 06:37 [From Sudafed] vancomycin AdvReac Severe ITCHING Verified 09/23/17 06:37 alendronate sodium AdvReac Intermediate muscle Verified 09/23/17 06:37 [From Fosamax] joint and pain Exam - - Exam: Examination shows of the patient is in bed and is very comfortable and feels the knee is markedly improved. She has a 2+ effusion. She has a little trouble getting to full extension because of swelling and has flexion to about 80. She is ligamentously stable to varus and valgus anterior posterior movement is generally stable there is some translation and this direction both anteriorly and posteriorly. She has a well-healed incision the anterior aspect of the knee. Patient with no redness or erythema. There is no bruising or ecchymosis. Ankle plantar flexion dorsiflexion toe motion is normal sensory exam is normal at the current time maybe a little weakness with dorsiflexion particularly eversion of the ankle. Radiographs of the knee show total knee replacement very thick polyethylene is noted but no clear active issues comparing x-rays from the 2013 time frame to current films I don't see any marked changes. Laboratory Results 09/22/17 09/22/17 09/22/17 Range/Units 18:55 19:45 19:45 WBC 13.13 H (4.8-10.8) 10^3/uL RBC 4.46 (4.20-5.40) 10^6/uL Hgb 13.8 (12.0-16.0) g/dL Hct 40.6 (37.0-47.0) % MCV 91.0 (81-99) FL MCH 30.9 (27-31) PG MCHC 34.0 (33-37) g/dL RDW Std Deviation 46.5 (39-50) fL RDW Coeff of Rigoberto 14.2 (11.5-14.5) % Plt Count 348 (140-350) 10*3/uL MPV 8.9 (7.4-12.2) FL Immature Gran % (Auto) 0.4 (0-5) % Neut % (Auto) 60.9 (50-80) % Lymph % (Auto) 27.3 (10-50) % [place] % (Auto) 10.4 (5-15) % Eos % (Auto) 0.6 (0-8) % Baso % (Auto) 0.4 (0-1) % Immature Gran # (Auto) 0.05 10*3/UL Neut # (Auto) 8.01 10*3/UL Lymph # (Auto) 3.58 10*3/uL [place] # (Auto) 1.36 H (0.3-0.8) 10*3/UL Eos # (Auto) 0.08 10*3/UL Baso # (Auto) 0.05 10*3/UL WBC Morphology Comment Normal morphology (NORM) Plt Morphology Comment Normal morphology (NORM) RBC Morph Comment Normal morphology (NORM) PT 12.1 H (9.7-11.4) secs INR 1.14 (0.00-5.90) N/A VBG pH (7.32-7.42) VBG pCO2 (45-55) mmHg VBG HCO3 (22-26) mmol/L VBG Base Excess (-2-2) MMOL/L Sodium 136 (135-145) meq/L Potassium 4.3 (3.8-5.2) meq/L Chloride 98 (98-112) meq/L Carbon Dioxide 23 (23-33) meq/L Anion Gap 15 (5-20) BUN 24 H (7-22) mg/dL Creatinine 1.1 (0.50-1.20) mg/dL BUN/Creatinine Ratio 21.81 H (6-20) Glucose 102 (78-110) mg/dL Calculated Osmolality 285.0 (267-292) mOsm/kg Lactic Acid (0.70-2.10) MMOL/L Uric Acid 5.9 (2.5-7.5) mg/dl Calcium 10.3 (8.7-10.7) mg/dL Magnesium 2.1 (1.6-2.4) mg/dL Total Bilirubin 0.5 (0.3-1.2) mg/dL AST 27 (8-39) IU/L ALT 31 (9-52) IU/L Alkaline Phosphatase 68 (38-126) IU/L C-Reactive Protein 2.3 H (0.0-0.9) mg/dL Total Protein 8.0 (6.1-8.0) g/dL Albumin 4.7 (3.5-4.8) g/dL Globulin 3.3 (2.50-4.10) g/dL Albumin/Globulin Ratio 1.40 (1.3-2.0) mg/g 09/22/17 09/22/17 09/23/17 Range/Units 19:45 20:08 05:33 WBC 10.29 (4.8-10.8) 10^3/uL RBC 3.70 L (4.20-5.40) 10^6/uL Hgb 11.3 L (12.0-16.0) g/dL Hct 34.2 L (37.0-47.0) % MCV 92.4 (81-99) FL MCH 30.5 (27-31) PG MCHC 33.0 (33-37) g/dL RDW Std Deviation 45.9 (39-50) fL RDW Coeff of Rigoberto 14.0 (11.5-14.5) % Plt Count 308 (140-350) 10*3/uL MPV 8.9 (7.4-12.2) FL Immature Gran % (Auto) 0.2 (0-5) % Neut % (Auto) 63.4 (50-80) % Lymph % (Auto) 21.6 (10-50) % [place] % (Auto) 13.1 (5-15) % Eos % (Auto) 1.1 (0-8) % Baso % (Auto) 0.6 (0-1) % Immature Gran # (Auto) 0.02 10*3/UL Neut # (Auto) 6.53 10*3/UL Lymph # (Auto) 2.22 10*3/uL [place] # (Auto) 1.35 H (0.3-0.8) 10*3/UL Eos # (Auto) 0.11 10*3/UL Baso # (Auto) 0.06 10*3/UL WBC Morphology Comment Normal morphology (NORM) Plt Morphology Comment Normal morphology (NORM) RBC Morph Comment Normal morphology (NORM) PT (9.7-11.4) secs INR (0.00-5.90) N/A VBG pH 7.45 H (7.32-7.42) VBG pCO2 40 L (45-55) mmHg VBG HCO3 28 H (22-26) mmol/L VBG Base Excess 4 H (-2-2) MMOL/L Sodium (135-145) meq/L Potassium (3.8-5.2) meq/L Chloride (98-112) meq/L Carbon Dioxide (23-33) meq/L Anion Gap (5-20) BUN (7-22) mg/dL Creatinine (0.50-1.20) mg/dL BUN/Creatinine Ratio (6-20) Glucose (78-110) mg/dL Calculated Osmolality (267-292) mOsm/kg Lactic Acid 1.4 (0.70-2.10) MMOL/L Uric Acid (2.5-7.5) mg/dl Calcium (8.7-10.7) mg/dL Magnesium (1.6-2.4) mg/dL Total Bilirubin (0.3-1.2) mg/dL AST (8-39) IU/L ALT (9-52) IU/L Alkaline Phosphatase (38-126) IU/L C-Reactive Protein (0.0-0.9) mg/dL Total Protein (6.1-8.0) g/dL Albumin (3.5-4.8) g/dL Globulin (2.50-4.10) g/dL Albumin/Globulin Ratio (1.3-2.0) mg/g Vital Signs (24 hrs) Temp Pulse Resp BP BP Pulse Ox 09/23/17 08:05 97.7 F 56 L 18 101/53 91 09/23/17 03:28 98.2 F 62 18 124/56 93 09/22/17 22:44 88 20 09/22/17 22:20 98.1 F 92 24 154/69 77 09/22/17 19:09 96.4 F L 74 18 128/59 96 - Vitals Vital Signs: Vital Signs Temperature 97.7 F Temperature Source Temporal Artery Scan Pulse Rate [Pulse Oximeter] 56 Respiratory Rate 18 Blood Pressure [Right Arm] 101/53 Pulse Ox 91 Oxygen Delivery Method Room Air Height 5 ft 4 in Weight 61.235 kg Results - Labs CBC and BMP: 09/23/17 05:33 09/22/17 19:45 Assessment and Plan - Assessment / Plan Additional Assessment/Plan Details: Impression: Status post total right knee replacement with effusion most likely traumatic bloody effusion in the face of minor injury and anticoagulation Plan: Patient will begin mobilization with therapy she feels that the knee is markedly better today and the swelling is half of what it was last night so we will get her started with physical therapy and when she is able to mobilize and transfer we can look at trying to get her home. We will follow her closely to make sure that this does not show any evidence of other issues including infection as we have discussed and reviewed. Whether this is a possibility of early loosening or evidence of loosening is always a possibility but we'll need to follow this along into early to make any determination. I certainly think based on her clinical history and exam that this is likely a traumatic bloody effusion from that small event that she felt. But we will follow her along closely to make sure it does not represent anything more than this. - Time/Visit Time Spent With Patient: 15-25 Minutes
[2017-09-23] MEDS ORDERED: Spironolactone Tab 50 MG TAB PO SCH (09:00)
[2017-09-23] MEDS ORDERED: Potassium Chloride Tab 10 MEQ TAB PO SCH (09:00)
[2017-09-23] MEDS ORDERED: Multivitamin Tab 1 TAB PO SCH (09:00)
[2017-09-23] MEDS ORDERED: Pravastatin Tab 40 MG TAB PO SCH (09:00)
[2017-09-23] MEDS: FOLIC ACID 1 MG TABLET PO SCH ×2 (09:03→13:09)
--- NOTE | 2017-09-23 11:33 | PTI REPORT ---
Thank you for the referral of Kimber Jose. She was seen on 09/23/17 for an inpatient evaluation secondary to hemarthrosis and generalized weakness. SUBJECTIVE: The patient is a 77-year-old female. The patient states she lives in a home that has three steps to enter and one handrail. She states she was previously independent with ADLs and iADLs. She drives and does all of her own shopping without any need for assistance. PAST MEDICAL HISTORY: Past medical history can be found in the patient's medical record. OBJECTIVE FINDINGS: Pain: The patient rates her pain as a 4/10 on the verbal analog scale (0=no pain , 10=worst pain) which is a big improvement from yesterday when her pain level was 12/10. The pain is in her right knee. She states it is worse with movement and does better with rest, ice, and elevation. Bed mobility: The patient was able to complete supine to sit transfer with independence. Transfers: The patient was able to transfer from sit to stand with stand by assistance. Ambulation: The patient states she ambulates with a cane; she does not have it, but she has someone willing to bring it in. The patient was able to ambulate 175 feet with IV trolley for assistive device and stand by assist. Range of motion: The patient's range of motion is within functional limits throughout bilateral lower extremities. The patient did have a 5 degree extension lag on the right. Strength: Manual muscle testing reveals bilateral hip flexion strength of 4-/5, hip abduction is 3+/5, hip adduction is 4/5, knee extension is 4/5, and dorsiflexion is 5/5 bilaterally. Balance: The patient has good dynamic and static sitting balance, good static standing balance, and fair dynamic standing balance. ASSESSMENT: The patient has slight right knee range of motion deficits and strength deficits and would benefit from continued skilled care. Short-Term Goals: To be met by discharge from inpatient: Patient will be able to complete all transfers with independence. Patient will be able to demonstrate 4/5 bilateral lower extremity strength for carry over for gait and balance. Patient will be able to ambulate 200 feet for community ambulation. Long-Term Goals: To be met following discharge from inpatient: Patient will demonstrate 4+/5 bilateral lower extremity strength for gait and transfer safety. Patient will be able to ambulate 300 feet with least restrictive assistive device for community ambulation. Patient will demonstrate good static and dynamic standing balance. TREATMENT PLAN: Patient will be seen B.I.D during the week and one time per day over the weekend as an inpatient to address the above goals and objectives. INITIAL TREATMENT: Treatment today consisted of the initial evaluation followed by range of motion and ambulation. The patient received an application of ice x10 minutes including set up to the right knee while in a hook lying position. The patient performed straight leg raises x15, short arc quads x15 hip abduction/adduction x15, glut sets x10, sit to stands x10, and NuStep x5 minutes. MTDD
--- NOTE | 2017-09-23 15:33 | OT.PROG ---
Progress Note Progress Note: S: pt states that she wants to talk to Dr. She does not live alone but has no other family members that live in town. She thinks she may have overdone it this morning. O: pt was seen in her room and completed bed mobility ind. She did not have to use the restroom at this time. she completed transfer downstair approx 150 ft with no breaks. She completed bed mobility INd and was left on moist heat for 15 min for her R knee. She completed Ue exercises with RTB in shoulder ext, hor abd, rows and bicep flex. She also completed BUE cane activity with 3# x15 to increase UE strength to assist with postural transitions. After completing PT she completed transfer approx 65 ft before sitting in w/c and being transferred back to her room. Once she arrived in room she completed toileting, Hygiene at sink and bed mobility Ind. She was left in supine position with ice on R knee. A: pt participated well in therapy but did display low activity tolerance towards end of therapy. She completed aDL's well. P: continue to monitor knee pain.
--- NOTE | 2017-09-23 15:52 | PT.PROG ---
Progress Note Progress Note: S: Pt is doing fair this afternoon. Pt participated in OT prior to PT. O: Pt received MHP x 15 min the R knee prior to PT. Treatment consisted of micromassage for pain modulation of the right knee, instruction in ther ex for BLE of 10x each of the following - 2# SAQ, heel slides, 0# SLR, 0# hip abd/add, 0# LAQ, and 4 min on the nustep. Pt ambulated 1 x 150 ft and 1x 75 ft with CGA x 1 for safety. Pt was brought back up to her room and left in her bed with alarm set and call light within reach. A: Pt tolerated program fair this afternoon. Fatigues easily with exercises but willing to participate with therapy. P: Continue per POC.
[2017-09-23 16:11] VITALS: BP 91/47; RESP 18; TEMP 97.4; O2SAT 94
--- NOTE | 2017-09-23 16:19 | DCSUMMARY ---
Hospitalization Summary Admit Date: 09/22/2017 Discharge Date: 09/23/17 Primary Diagnosis:: right knee hemarthrosis, spontaneous Secondary Diagnosis:: History of recurrent pulmonary embolism and/DVT. Hospital Course: This is a 77 YO female that presented with right knee pain and was them felt to have an hemarthrosis. White blood cell count normalized overnight. There was no other sign of infection and no fever developed and no erythema. In the interval time from admission to discharge, the hemarthrosis actually improved and the effusion decreased in size clinically. The patient's movement came back and her knee to significant degree and she could flex to over 90. She was able to ambulate with therapy, and she stated her pain was controlled. She was ready to go home. I did discuss with her that there is no evidence now that shows the dose on Xarelto for extended treatment of venous thromboembolism and pulmonary embolism can be at 10 mg daily with a slightly decreased rate of clinically relevant nonmajor bleeding. We sent in a prescription for 90 days with 3 refills and she 'll be on this long-term. I've asked her to resume that on Wednesday. I do not think she needs any overlap at this time. I did have orthopedics see the patient, and I greatly appreciate Dr. Palacios' s evaluation. He felt this was most consistent with a hemarthrosis. No complaints of chest pain, shortness breath, nausea or vomiting. Assessment and Plan: 1. As per discharge assessments noted 2. Disposition: Patient is discharged home. 3. Condition on discharge, stable and improved. 4. Diet: regular diet 5. Activities: resume normal activities gradually. 6. Follow-Up: 1. See Dr. Larsen in 1 week for recheck of the knee. See Dr. Palacios if pain persists. 2. 7. Medications at the Time of Discharge: Home Medications 3 Medication Instructions Recorded Confirmed Type Multivitamin [Multivitamins] 1 ea PO DAILY 06/10/12 09/22/17 History Estradiol Vaginal Cream 0.01% 1 applic VAGINAL 2XW #1 tube 02/24/16 09/22/17 History [Estrace Vaginal Cream 0.01%] Calcium Carbonate/Vitamin D3 1 tab PO BID tab 04/14/17 09/22/17 History [Calcium 600-Vit D3 200 Tablet] folic acid 1 mg tablet 1 mg PO QID #120 tab 07/14/17 09/22/17 History potassium chloride ER 10 mEq 10 meq PO QD #90 tab 07/14/17 09/22/17 Rx tablet,extended release spironolactone 50 mg tablet 50 mg PO DAILY #90 tab 08/27/17 09/22/17 Rx pravastatin 40 mg tablet 40 mg PO DAILY #90 tab 09/08/17 09/22/17 Rx zolpidem 10 mg tablet 10 mg PO QHS #30 tab-cap 09/08/17 09/22/17 Rx Rivaroxaban [Xarelto] 10 mg PO DAILY #90 tab 09/23/17 Rx Tramadol HCl 50 mg PO Q6H PRN #10 tab 09/23/17 Rx We did a limited short term dose of tramadol as I do not want patient on anti- inflammatories and I instructed her as such. 8. Time, care, counseling and coordination of care for this discharge is greater than 30 minutes. Exam - Vitals Vital Signs: Vital Signs Temperature 97.4 F Temperature Source Temporal Artery Scan Pulse Rate [Pulse Oximeter] 64 Respiratory Rate 18 Blood Pressure [Right Arm] 91/47 Pulse Ox 94 Oxygen Delivery Method Room Air Height 5 ft 4 in Weight 135 lb - General General Appearance: No Acute Distress, Cooperative - Eye Eye Exam: POSITIVE: No Scleral Icterus - ENT ENT Exam: POSITIVE: Mucous Membranes Moist - Respiratory Respiratory Exam: POSITIVE: Clear to Auscultation - Bilaterally, Breathing Non Labored - Cardiovascular Cardiovascular Exam: POSITIVE: RRR, No Murmur, No Clicks, No Gallops, No Rubs, No JVD - GI/Abdominal GI/Abdominal Exam: POSITIVE: Normal Bowel Sounds, Non Tender, Non Distended, Soft - Extremities Extremities Exam: POSITIVE: No Clubbing Present, No Edema Present, No Cyanosis Present, Joint Swelling (Right knee swelling is improved, motion in that joint is improved.) - Neurological Neurological Exam: POSITIVE: Alert, Oriented x 3, No Facial Droop, Speech Intact / Clear Data Peritnent Studies: Laboratory Results 09/22/17 09/22/17 09/22/17 Range/Units 18:55 19:45 19:45 WBC 13.13 H (4.8-10.8) 10^3/uL RBC 4.46 (4.20-5.40) 10^6/uL Hgb 13.8 (12.0-16.0) g/dL Hct 40.6 (37.0-47.0) % MCV 91.0 (81-99) FL MCH 30.9 (27-31) PG MCHC 34.0 (33-37) g/dL RDW Std Deviation 46.5 (39-50) fL RDW Coeff of Rigoberto 14.2 (11.5-14.5) % Plt Count 348 (140-350) 10*3/uL MPV 8.9 (7.4-12.2) FL Immature Gran % (Auto) 0.4 (0-5) % Neut % (Auto) 60.9 (50-80) % Lymph % (Auto) 27.3 (10-50) % [place] % (Auto) 10.4 (5-15) % Eos % (Auto) 0.6 (0-8) % Baso % (Auto) 0.4 (0-1) % Immature Gran # (Auto) 0.05 10*3/UL Neut # (Auto) 8.01 10*3/UL Lymph # (Auto) 3.58 10*3/uL [place] # (Auto) 1.36 H (0.3-0.8) 10*3/UL Eos # (Auto) 0.08 10*3/UL Baso # (Auto) 0.05 10*3/UL WBC Morphology Comment Normal morphology (NORM) Plt Morphology Comment Normal morphology (NORM) RBC Morph Comment Normal morphology (NORM) PT 12.1 H (9.7-11.4) secs INR 1.14 (0.00-5.90) N/A VBG pH (7.32-7.42) VBG pCO2 (45-55) mmHg VBG HCO3 (22-26) mmol/L VBG Base Excess (-2-2) MMOL/L Sodium 136 (135-145) meq/L Potassium 4.3 (3.8-5.2) meq/L Chloride 98 (98-112) meq/L Carbon Dioxide 23 (23-33) meq/L Anion Gap 15 (5-20) BUN 24 H (7-22) mg/dL Creatinine 1.1 (0.50-1.20) mg/dL BUN/Creatinine Ratio 21.81 H (6-20) Glucose 102 (78-110) mg/dL Calculated Osmolality 285.0 (267-292) mOsm/kg Lactic Acid (0.70-2.10) MMOL/L Uric Acid 5.9 (2.5-7.5) mg/dl Calcium 10.3 (8.7-10.7) mg/dL Magnesium 2.1 (1.6-2.4) mg/dL Total Bilirubin 0.5 (0.3-1.2) mg/dL AST 27 (8-39) IU/L ALT 31 (9-52) IU/L Alkaline Phosphatase 68 (38-126) IU/L C-Reactive Protein 2.3 H (0.0-0.9) mg/dL Total Protein 8.0 (6.1-8.0) g/dL Albumin 4.7 (3.5-4.8) g/dL Globulin 3.3 (2.50-4.10) g/dL Albumin/Globulin Ratio 1.40 (1.3-2.0) mg/g 09/22/17 09/22/17 09/23/17 Range/Units 19:45 20:08 05:33 WBC 10.29 (4.8-10.8) 10^3/uL RBC 3.70 L (4.20-5.40) 10^6/uL Hgb 11.3 L (12.0-16.0) g/dL Hct 34.2 L (37.0-47.0) % MCV 92.4 (81-99) FL MCH 30.5 (27-31) PG MCHC 33.0 (33-37) g/dL RDW Std Deviation 45.9 (39-50) fL RDW Coeff of Rigoberto 14.0 (11.5-14.5) % Plt Count 308 (140-350) 10*3/uL MPV 8.9 (7.4-12.2) FL Immature Gran % (Auto) 0.2 (0-5) % Neut % (Auto) 63.4 (50-80) % Lymph % (Auto) 21.6 (10-50) % [place] % (Auto) 13.1 (5-15) % Eos % (Auto) 1.1 (0-8) % Baso % (Auto) 0.6 (0-1) % Immature Gran # (Auto) 0.02 10*3/UL Neut # (Auto) 6.53 10*3/UL Lymph # (Auto) 2.22 10*3/uL [place] # (Auto) 1.35 H (0.3-0.8) 10*3/UL Eos # (Auto) 0.11 10*3/UL Baso # (Auto) 0.06 10*3/UL WBC Morphology Comment Normal morphology (NORM) Plt Morphology Comment Normal morphology (NORM) RBC Morph Comment Normal morphology (NORM) PT (9.7-11.4) secs INR (0.00-5.90) N/A VBG pH 7.45 H (7.32-7.42) VBG pCO2 40 L (45-55) mmHg VBG HCO3 28 H (22-26) mmol/L VBG Base Excess 4 H (-2-2) MMOL/L Sodium (135-145) meq/L Potassium (3.8-5.2) meq/L Chloride (98-112) meq/L Carbon Dioxide (23-33) meq/L Anion Gap (5-20) BUN (7-22) mg/dL Creatinine (0.50-1.20) mg/dL BUN/Creatinine Ratio (6-20) Glucose (78-110) mg/dL Calculated Osmolality (267-292) mOsm/kg Lactic Acid 1.4 (0.70-2.10) MMOL/L Uric Acid (2.5-7.5) mg/dl Calcium (8.7-10.7) mg/dL Magnesium (1.6-2.4) mg/dL Total Bilirubin (0.3-1.2) mg/dL AST (8-39) IU/L ALT (9-52) IU/L Alkaline Phosphatase (38-126) IU/L C-Reactive Protein (0.0-0.9) mg/dL Total Protein (6.1-8.0) g/dL Albumin (3.5-4.8) g/dL Globulin (2.50-4.10) g/dL Albumin/Globulin Ratio (1.3-2.0) mg/g Patient Problems - Patient Problem List (1) Hemarthrosis, right knee Status: Acute Code(s): M25.061 - Hemarthrosis, right knee Category: Medical (2) Anticoagulant causing adverse effect in therapeutic use Status: Acute Code(s): T45.515A - Adverse effect of anticoagulants, initial encounter Qualifiers: Encounter type: initial encounter Qualified Code(s): T45.515A - Adverse effect of anticoagulants, initial encounter Category: Medical (3) Benign hypertension Status: Chronic Category: Medical (4) Hyperlipidemia Status: Chronic Qualifiers: Hyperlipidemia type: unspecified Qualified Code(s): E78.5 - Hyperlipidemia , unspecified Category: Medical (5) Hx pulmonary embolism Status: Chronic Onset Date: 10/23/15 Code(s): Z86.711 - Personal history of pulmonary embolism Category: Medical
[2017-09-23] MEDS ORDERED: ZOLPIDEM 10 MG TABLET PO SCH (21:00)
--- NOTE | 2017-09-24 09:05 | DI ---
EXAM: XR Right Knee, 3 views CLINICAL HISTORY: Pain. TECHNIQUE: Three views of the right knee. COMPARISON: None. FINDINGS: Bones/joints: Total knee arthroplasty. The hardware appears intact without evidence of complication. Mild heterotopic new bone formation. Moderate joint effusion. No acute fracture. No dislocation. Soft tissues: Unremarkable. IMPRESSION: Moderate joint effusion. No evidence of acute fracture.
--- NOTE | 2017-09-27 09:36 | OTI REPORT ---
Thank you for the referral of Kimber Jose. She was seen on 09/23/17 for an occupational therapy inpatient evaluation secondary to hemarthrosis in the right knee and generalized weakness. SUBJECTIVE: The patient is a 77-year-old female who had right knee pain for a couple of days before going in to the hospital. She said yesterday her knee pain was a 12 /10 on the verbal analog scale (0=no pain, 10=worst pain). She does live with her . They do have four steps going into their home with a hand rail. Once in her home, she does have everything on one level. Today the patient rated her pain as a 4/10. The patient reports she has a tub/shower combination and prior to admission she was independent with her laundry, cooking, cleaning, grocery shopping, and driving. PAST MEDICAL HISTORY: Past medical history can be found in the patient's medical record. OBJECTIVE FINDINGS: Range of motion: Today the patient had range of motion in the upper extremities that was within functional limits. 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 Pain: The patient rated her pain in her knee today as a 4/10 on the verbal analog scale (0=no pain, 10=worst pain). Edema: The patient did demonstrate Grade I edema in her right knee. Swallow: The patient reports no difficulty with her swallowing. Cognition: The patient was alert and oriented x4. She is in charge of her medications at home. Strength: Strength in the upper extremities for shoulder flexion is 4/5, shoulder abduction is 4/5, elbow flexion/extension is 4/5, wrist flexion/ extension is 4/5. Activities of daily living: The patient was able to demonstrate donning and doffing her sock independently on the right side and this is her painful side. Transfers: For functional transfers the patient did need to hang onto objects. Typically she does not use a cane or a walker but her safety with transfers should be addressed. ASSESSMENT: Problem List: Decreased safety with transfers Decreased upper extremity strength Short-Term Goals: To be met by discharge from inpatient: Patient will be able to complete a toilet transfer with modified independence with or without use of adaptive equipment independently. Patient will increase upper extremity strength to 5/5 throughout both upper extremities and be independent with a home exercise program. Patient will be educated and demonstrate safety with all functional reaching tasks with or without use of adaptive devices. Long-Term Goals: To be met following discharge from inpatient: Patient will be discharged home, demonstrating safety and independence with all functional transfers. TREATMENT PLAN: Patient will be seen B.I.D during the week and one time per day over the weekend as an inpatient to address the above goals and objectives. INITIAL TREATMENT: Treatment today consisted of the initial evaluation followed by functional transfers to the chair with min assist. The patient completed lower extremity dressing with stand by assist for standing. She completed hygiene activities x3 minutes while standing at sink. The patient did have some pain in her right knee with this. [facility]ALEctor
== END 2017-09-23 17:15 | disposition home or self-care (01) ==
LOC: MED/SURG 19:09 → ER 19:09
PROVIDERS: ADMIT Family Medicine; ATTEND Family Medicine